=== PATIENT | female | born 1965 | race American Indian/Alaskan Native ===

== ENCOUNTER 2018-03-26 16:16 | Observation (INO) | payer MEDICAID ==
[2018-03-26 16:19] VITALS: BMI 45.7
[2018-03-26] MEDS ORDERED: Sodium Chloride 0.9% 1,000 ML IV STA (17:03)
[2018-03-26 18:08] LABS: BASO # 0.02 K/mm3 (0.0-2.0); BASO % 0.2 % (0.0-3.0); EOS # 0.1 (0.0-0.7); EOS % 0.4 % (1.5-5.0); GRAN # 8.32 (1.4-6.5); GRAN % 66.9 % (50.0-68.0); HEMOGLOBIN 12.1 g/dL (12.0-16.0); LYMPH # 3.1 (1.2-3.4); LYMPH % 25.3 % (22.0-35.0); MEAN CELL VOLUME 85.7 fl (80.0-105.0); MEAN CORPUSCULAR HEMOGLOBIN 28.3 pg (25.0-35.0); MEAN CORPUSCULAR HGB CONC 33.1 g/dl (31.0-37.0); MEAN PLATELET VOLUME 9.8 fl (7.0-11.0); MONO # 0.9 (0.1-0.6); MONO % 7.2 % (1.0-6.0); RBC 4.27 10^6/uL (3.5-6.1); RED CELL DISTRIBUTION WIDTH 17.7 % (11.5-14.5); WHITE BLOOD COUNT 12.4 10^3/uL (4.5-11.0)
[2018-03-26 18:31] LABS: ALT/SGPT 27 U/L (7-56); AST/SGOT 28 U/L (14-36); BLOOD UREA NITROGEN 15 mg/dL (7-21); CALCIUM 8.6 mg/dL (8.4-10.5); GFR NON-AFRICAN AMERICAN > 60
--- NOTE | 2018-03-26 19:11 | ED PDOC ---
Arrival/HPI - General Chief Complaint: ENT Problem Time Seen by Provider: 03/26/18 16:31 Historian: Patient - History of Present Illness Narrative History of Present Illness (Text): 03/26/18 19:04 53yr old female presents today with a 5 day history of worsening left sided neck pain. pt was seen at [facility] twice in the past [address] of the neck which patient states showed a Left sided salivary gland stone. Patient states on her second visit to the hospital she was discharged home with antibiotics but has been unable to take them due to feeling of difficulty swallowing and breathing. Patient states last night symptoms worsened and she feels as though the throat is closing or something is pushing on the throat. Patient states she tried using Lemonheads/lemon but states that it made the symptoms worse. Patient denies fevers or chills. Patient denies shortness of breath but states she has been having some intermittent chest pain. denies chest pain at present time. Denies dizziness or weakness. Denies headache. Denies any trauma or injury. Patient states she's been able to tolerate liquids but has not been able to tolerate solids. Time/Duration: Other (5 days) Symptom Onset: Gradual Symptom Course: Worsening Quality: Tightness Severity Level: Moderate Past Medical History - Provider Review Nursing Documentation Reviewed: Yes - Travel History Have you recently traveled outside [place] w/in the past 3 mons?: No - Infectious Disease Hx of Infectious Diseases: None - Cardiac Hx Hypertension: Yes - Pulmonary Hx Asthma: Yes - Psychiatric Hx Substance Use: No Family/Social History - Physician Review Nursing Documentation Reviewed: Yes Family/Social History: Unknown Family HX Smoking Status: Former Smoker Hx Alcohol Use: No Hx Substance Use: No Allergies/Home Meds Allergies/Adverse Reactions: Allergies No Known Allergies Allergy (Verified 03/26/18 16:28) Review of Systems - Review of Systems Constitutional: absent: Fatigue, Fevers ENT: absent: Sore Throat, Sinus Congestion Respiratory: absent: SOB, Cough Cardiovascular: Chest Pain (intermittent;non currently). absent: Palpitations Gastrointestinal: absent: Abdominal Pain, Nausea, Vomiting Genitourinary Female: absent: Dysuria, Frequency, Hematuria Musculoskeletal: Neck Pain (left sided neck pain/swelling/mass) Skin: absent: Rash, Pruritis Neurological: absent: Headache, Dizziness Psychiatric: Anxiety. absent: Depression, Suicidal Ideation Physical Exam Vital Signs Reviewed: Yes Vital Signs Temp Pulse Resp BP Pulse Ox 03/26/18 16:28 98 F 87 18 147/79 97 Temperature: Afebrile Blood Pressure: Normal Pulse: Regular Respiratory Rate: Normal Appearance: Positive for: Well-Appearing, Non-Toxic, Comfortable Pain Distress: None Mental Status: Positive for: Alert and Oriented X 3 - Systems Exam Head: Present: Atraumatic Pupils: Present: PERRL Extroacular Muscles: Present: EOMI Mouth: Present: Moist Mucous Membranes, Normal Lips, Normal Tounge. No: Drooling, Trismus Pharnyx: Present: Normal. No: ERYTHEMA, TONSILS ENLARGED, Peritonsilar Swelling, Uvular Deviation, Muffled/Hoarse Voice, Strider, Soft Palate/Uvular Edema Nose (External): Present: Atraumatic Nose (Internal): Present: Normal Inspection Neck: Present: Normal Range of Motion, Trachea Midline, Other (+ ttp over left side of the neck. no erythema; no warmth. + tender mass noted. ). No: MIDLINE TENDERNESS Respiratory/Chest: Present: Clear to Auscultation, Good Air Exchange. No: Respiratory Distress, Accessory Muscle Use, Wheezes, Retracting, Rhonchi, Tachypneic Cardiovascular: Present: Regular Rate and Rhythm, Normal S1, S2. No: Murmurs Neurological: Present: GCS=15, Speech Normal Skin: Present: Warm, Dry, Normal Color. No: Rashes Psychiatric: Present: Alert, Oriented x 3 Medical Decision Making ED Course and Treatment: 03/26/18 19:27 53yr old female with left sided neck pain/ hx of neck mass. c/o difficulty swallowing. pt is non toxic well appearing; c/o left sided neck tightness with difficulty swallowing. seen 2 times at another hospital for the same. pt tolerating secretions; resting comfortably. pt given solumedrol 125mg IV. cbc; wbc; 12.4 cmp; wnl ct neck:FINDINGS: PHARYNX: Unremarkable appearance of the nasopharynx, oropharyx, and hypopharynx. No pharyngeal mucosal based mass lesions. LARYNX: The larynx is unremarkable. The epiglottis appears normal. RETROPHARYNGEAL SPACE: No retropharyngeal soft tissue swelling or gas. SALIVARY GLANDS: Unremarkable appearance of the parotid, submandibular, and sublingual glands. LYMPH NODES: No significant lymphadenopathy. THYROID: Unremarkable appearance of the thyroid. No thyroid nodule seen. BONES: No acute osseous abnormality. No aggressive appearing osseous lesion. Mild inflammatory changes suspected within the ethmoid sinuses. IMPRESSION: Unremarkable CT neck without IV contrast. Mild inflammatory changes ethmoid sinuses. Clinical correlation advised. pt reassessment; pt is now c/o chest pain. pt states she has been having intermittent chest pain for the past week. ekg cxr trop added. ekg; normal sinus rhythm at 67 bpm normal axis no ST elevations QTC 467 trop: negative case discussed with dr. Sullivan (ENT) in depth; he advised steriods, abx. asa 300 rectal supp ordered. 03/26/18 19:[address] Mcfarlane; accepts observational status admission; would like patient NPo, given clindamycin IV. all results discussed with patient in depth. all aspects of this case were discussed the attending of record. impression; neck pain, chest pain, hx of salivary gland stone. admit observational status to tele. - Lab Interpretations Lab Results: 03/26/18 17:40 03/26/18 18:12 Lab Results 03/26/18 18:12: Sodium 139, Potassium 3.7, Chloride 106, Carbon Dioxide 27, Anion Gap 10, BUN 15, Creatinine 0.9, Est GFR ( Amer) > 60, Est GFR (Non- Af Amer) > 60, Random Glucose 97, Calcium 8.6, Total Bilirubin 0.5, AST 28, ALT 27, Alkaline Phosphatase 77, Total Protein 7.8, Albumin 4.0, Globulin 3.9, Albumin/Globulin Ratio 1.0 L 03/26/18 17:40: WBC 12.4 H, RBC 4.27, Hgb 12.1, Hct 36.6, MCV 85.7, MCH 28.3, MCHC 33.1, RDW 17.7 H, Plt Count 484 H, MPV 9.8, Gran % 66.9, Lymph % (Auto) 25.3, [place] % (Auto) 7.2 H, Eos % (Auto) 0.4 L, Baso % (Auto) 0.2, Gran # 8.32 H, Lymph # (Auto) 3.1, [place] # (Auto) 0.9 H, Eos # (Auto) 0.1, Baso # (Auto) 0.02 - RAD Interpretation Radiology Orders: 03/26/18 17:21 NECK SOFT TISSUE W/O CONTRAST [CT] Stat - Medication Orders Current Medication Orders: Discontinued Medications Sodium Chloride (Sodium Chloride 0.9%) 1,000 mls @ 999 mls/hr IV .Q1H1M STA Stop: 03/26/18 18:03 Last Admin: 03/26/18 18:12 Dose: 999 mls/hr eMAR Start Stop Document 03/26/18 18:12 SS (Rec: 03/26/18 18:12 SS [id number]) Intravenous Solution Start Date 03/26/18 Start Time 18:12 End Date 03/26/18 End time 19:12 Total Infusion Time 60 Methylprednisolone (Solu-Medrol) 125 mg IVP STAT STA Stop: 03/26/18 18:02 Last Admin: 03/26/18 18:12 Dose: 125 mg IVP Administration Document 03/26/18 18:12 SS (Rec: 03/26/18 18:12 SS [id number]) Charges for Administration # of IVP Administrations 1 Disposition/Present on Arrival - Present on Arrival Any Indicators Present on Arrival: No History of DVT/PE: No History of Uncontrolled Diabetes: No Urinary Catheter: No History of Decub. Ulcer: No History Surgical Site Infection Following: None - Disposition Have Diagnosis and Disposition been Completed?: Yes Diagnosis: Neck pain, Chest pain, Difficulty swallowing, History of salivary gland disease Disposition: HOSPITALIZED Disposition Time: 19:45 Patient Plan: Observation Patient Problems: Current Active Problems Problem Status Onset Chest pain Acute Difficulty swallowing Acute History of salivary gland disease Acute Neck pain Acute Condition: FAIR Discharge Instructions (ExitCare): Chest Pain (ED)
[2018-03-26 19:41] LABS: TROPONIN I < 0.01 ng/mL
[2018-03-26] MEDS ORDERED: Clindamycin 600mg/50ml D5W 600 MG/50 ML VIAL IVPB STA (19:46)
[2018-03-26] MEDS: Sodium Chloride 0.9% 1,000 ML IV SCH (20:16)
[2018-03-26 20:17] LABS: CK-MB 1.2 ng/mL (0.0-3.6)
--- NOTE | 2018-03-26 21:14 | CP.PCM.HP ---
<DaveSkyler - Last Filed: 03/26/18 21:52> History of Present Illness - History of Present Illness History of Present Illness: Skyler Acosta DO PGY1. [facility] Hospitalist Service, Dr Maeve Amin: Left neck swelling 53 y/o female with PMH of HTN, asthma, GERD presents with 4 days h/o left sided neck swelling. It's gradual, progressive causing SOB, dry mouth, difficulty swallowing and inability to eat for the the past 3 days. She reports extension of the neck tightness to the mid chest. She denied fever, chills, facial droop, muscle or sensory deficits. Patient went to the ED in [facility] [facility] twice for the past [address] neck showed salivary gland stone, steroids were given. She was discharged on oral abx but was not able to swallow. Her symptoms did not resolve and decided to come to ED today. Patient denied heat/cold intolerance, N/V/D/C, skin changes, palpitations, prior dry eye/mouth, prior dysphagia, tightness of skin, CP, headache 12 points ROS reviewed with pertinent positives as above PMH: HTN, asthma, GERD, back pain PSH: none Meds: amlodipine, ventolin, pulmicort, flexirel All: NKDA SH: quit smoking 1 year ago (smoked 1/2 ppd for the last 35 years) . Denies drug use. Drinks alcohol socially. Disabled due to her back pain, vertebral disease FH: mother and sister have thyroid disease Present on Admission - Present on Admission Any Indicators Present on Admission: No Past Patient History - Infectious Disease Hx of Infectious Diseases: None - Past Social History Smoking Status: Former Smoker - CARDIAC Hx Hypertension: Yes - PULMONARY Hx Asthma: Yes - PSYCHIATRIC Hx Substance Use: No Meds Allergies/Adverse Reactions: Allergies Allergy/AdvReac Type Severity Reaction Status Date / Time No Known Allergies Allergy Verified 03/26/18 16:28 Physical Exam - Constitutional Appears: Well, Non-toxic, No Acute Distress - Head Exam Head Exam: ATRAUMATIC, NORMAL INSPECTION, NORMOCEPHALIC - Eye Exam Eye Exam: EOMI, Normal appearance, PERRL Pupil Exam: NORMAL ACCOMODATION, PERRL - Expanded ENT Exam Expanded Mouth exam: dry mucosa, normal external inspection, tongue normal. absent: drooling, laceration, muffled voice Teeth exam: dental caries, fractured tooth # Throat exam: absent: Post Pharyngeal Edema, Tonsillar Erythema, Tonsillar Exudate - Neck Exam Neck exam: Positive for: Lymphadenopathy (left side), Tenderness (left side of neck ). Negative for: Thyromegaly - Respiratory Exam Respiratory Exam: Clear to Auscultation Bilateral, NORMAL BREATHING PATTERN. absent: Rales, Rhonchi, Wheezes - Cardiovascular Exam Cardiovascular Exam: REGULAR RHYTHM, +S1, +S2. absent: Gallop, JVD, Rubs - GI/Abdominal Exam GI & Abdominal Exam: Normal Bowel Sounds, Soft. absent: Guarding, Rebound, Tenderness Additional comments: epigastric tenderness - Extremities Exam Extremities exam: Positive for: normal capillary refill, normal inspection, pedal pulses present - Back Exam Back exam: paraspinal tenderness - Neurological Exam Neurological exam: Alert, CN II-XII Intact, Oriented x3, Reflexes Normal - Psychiatric Exam Psychiatric exam: Normal Affect, Normal Mood - Skin Skin Exam: Dry, Intact, Normal Color, Warm Results - Vital Signs Recent Vital Signs: Last Vital Signs Temp 98.8 F 03/26/18 19:47 Pulse 75 03/26/18 19:47 Resp 20 03/26/18 19:47 BP 147/78 03/26/18 19:47 Pulse Ox 96 03/26/18 19:47 - Labs Result Diagrams: 03/26/18 17:40 03/26/18 18:12 Labs: Laboratory Results - last 24 hr 03/26/18 03/26/18 03/26/18 17:40 18:12 18:12 WBC 12.4 H RBC 4.27 Hgb 12.1 Hct 36.6 MCV 85.7 MCH 28.3 MCHC 33.1 RDW 17.7 H Plt Count 484 H MPV 9.8 Gran % 66.9 Lymph % (Auto) 25.3 [place] % (Auto) 7.2 H Eos % (Auto) 0.4 L Baso % (Auto) 0.2 Gran # 8.32 H Lymph # (Auto) 3.1 [place] # (Auto) 0.9 H Eos # (Auto) 0.1 Baso # (Auto) 0.02 Sodium 139 Potassium 3.7 Chloride 106 Carbon Dioxide 27 Anion Gap 10 BUN 15 Creatinine 0.9 Est GFR ( Amer) > 60 Est GFR (Non-Af Amer) > 60 Random Glucose 97 Calcium 8.6 Total Bilirubin 0.5 AST 28 ALT 27 Alkaline Phosphatase 77 Lactate Dehydrogenase Total Creatine Kinase CK-MB (CK-2) CK-MB (CK-2) % Troponin I Total Protein 7.8 Albumin 4.0 Globulin 3.9 Albumin/Globulin Ratio 1.0 L TSH 3rd Generation 2.75 03/26/18 18:15 WBC RBC Hgb Hct MCV MCH MCHC RDW Plt Count MPV Gran % Lymph % (Auto) [place] % (Auto) Eos % (Auto) Baso % (Auto) Gran # Lymph # (Auto) [place] # (Auto) Eos # (Auto) Baso # (Auto) Sodium Potassium Chloride Carbon Dioxide Anion Gap BUN Creatinine Est GFR ( Amer) Est GFR (Non-Af Amer) Random Glucose Calcium Total Bilirubin AST ALT Alkaline Phosphatase Lactate Dehydrogenase 506 Total Creatine Kinase 378 H CK-MB (CK-2) 1.2 CK-MB (CK-2) % Cancelled Troponin I < 0.01 Total Protein Albumin Globulin Albumin/Globulin Ratio TSH 3rd Generation Assessment & Plan - Assessment and Plan (Free Text) Assessment: 53 y/o female with PMH of HTN, asthma, GERD presents with 4 days h/o left sided neck swelling. CT neck shows left sialolithiasis. She was also found to have anemia Plan: Left sided neck swelling: -associated with dry mouth and dysphagia. failed steroid treatment. third ER vi sit in 4 days -CT neck done at [facility] [place]: left submandibular salidolithiasis -CT neck (03/26) w/o contrast: read pending -continue solu-medrol 20mg q8h -continue clindamycin 600mg q8h -continue IVF NS@75cc/hr -toradol prn for pain -TSH normal -f/u DEANNA -ENT consulted Dr Nate Jetti: -Likely due to iron deficiency anemia -elevated RDW, throbocytosis, low iron, low normal TIBC, low saturation, ferritin pending -patient asymptomatic -H/H 12.1/36.6 continue monitoring Chest/epigastric pain: -EKG: NSR. no ST/T wave changes -Trop negative x1. serial x2 q6h HTN: -continue home med amlodipine -f/u lipid panel, Hgb A1C Asthma: -moderate, persistent. no active disease -continue home med ventolin, pulmicort -duoneb prn -O2 supp prn -maintain O2 sat >90% Back pain: -continue home med cyclobezaprine DVT/GI ppx: -pantoprazole -SCD NPO Case reviewed and paln discussed with attending Dr Maeve Acosta, DO, PGY1 <Carli Mcfarlane - Last Filed: 03/27/18 06:48> Results - Vital Signs Recent Vital Signs: Last Vital Signs Temp 98.0 F 03/27/18 06:00 Pulse 68 03/27/18 06:00 Resp 18 03/27/18 06:00 BP 150/86 03/27/18 06:00 Pulse Ox 96 03/27/18 06:00 - Labs Result Diagrams: 03/26/18 17:40 03/26/18 18:12 Labs: Laboratory Results - last 24 hr 03/26/18 03/26/18 03/26/18 17:40 18:00 18:12 WBC 12.4 H RBC 4.27 Hgb 12.1 Hct 36.6 MCV 85.7 MCH 28.3 MCHC 33.1 RDW 17.7 H Plt Count 484 H MPV 9.8 Gran % 66.9 Lymph % (Auto) 25.3 [place] % (Auto) 7.2 H Eos % (Auto) 0.4 L Baso % (Auto) 0.2 Gran # 8.32 H Lymph # (Auto) 3.1 [place] # (Auto) 0.9 H Eos # (Auto) 0.1 Baso # (Auto) 0.02 Sodium 139 Potassium 3.7 Chloride 106 Carbon Dioxide 27 Anion Gap 10 BUN 15 Creatinine 0.9 Est GFR ( Amer) > 60 Est GFR (Non-Af Amer) > 60 Random Glucose 97 Calcium 8.6 Iron 32 L TIBC 271 % Saturation 12 L Total Bilirubin 0.5 AST 28 ALT 27 Alkaline Phosphatase 77 Lactate Dehydrogenase Total Creatine Kinase CK-MB (CK-2) CK-MB (CK-2) % Troponin I Total Protein 7.8 Albumin 4.0 Globulin 3.9 Albumin/Globulin Ratio 1.0 L TSH 3rd Generation Urine Color Urine Appearance Urine pH Ur Specific [place] Urine Protein Urine Glucose (UA) Urine Ketones Urine Blood Urine Nitrate Urine Bilirubin Urine Urobilinogen Ur Leukocyte Esterase Urine RBC Urine WBC Ur Epithelial Cells Urine Opiates Screen Urine Methadone Screen Ur Barbiturates Screen Ur Phencyclidine Scrn Ur Amphetamines Screen U Benzodiazepines Scrn U Oth Cocaine Metabols U Cannabinoids Screen 03/26/18 03/26/18 03/26/18 18:12 18:15 21:20 WBC RBC Hgb Hct MCV MCH MCHC RDW Plt Count MPV Gran % Lymph % (Auto) [place] % (Auto) Eos % (Auto) Baso % (Auto) Gran # Lymph # (Auto) [place] # (Auto) Eos # (Auto) Baso # (Auto) Sodium Potassium Chloride Carbon Dioxide Anion Gap BUN Creatinine Est GFR ( Amer) Est GFR (Non-Af Amer) Random Glucose Calcium Iron TIBC % Saturation Total Bilirubin AST ALT Alkaline Phosphatase Lactate Dehydrogenase 506 Total Creatine Kinase 378 H CK-MB (CK-2) 1.2 CK-MB (CK-2) % Cancelled Troponin I < 0.01 Total Protein Albumin Globulin Albumin/Globulin Ratio TSH 3rd Generation 2.75 Urine Color Light yellow Urine Appearance Clear Urine pH 7.0 Ur Specific [place] 1.015 Urine Protein Negative Urine Glucose (UA) Negative Urine Ketones Negative Urine Blood Trace-intact H Urine Nitrate Negative Urine Bilirubin Negative Urine Urobilinogen 0.2 Ur Leukocyte Esterase Negative Urine RBC 0 - 2 Urine WBC Negative Ur Epithelial Cells 1 - 3 Urine Opiates Screen Urine Methadone Screen Ur Barbiturates Screen Ur Phencyclidine Scrn Ur Amphetamines Screen U Benzodiazepines Scrn U Oth Cocaine Metabols U Cannabinoids Screen 03/27/18 03/27/18 00:30 02:18 WBC RBC Hgb Hct MCV MCH MCHC RDW Plt Count MPV Gran % Lymph % (Auto) [place] % (Auto) Eos % (Auto) Baso % (Auto) Gran # Lymph # (Auto) [place] # (Auto) Eos # (Auto) Baso # (Auto) Sodium Potassium Chloride Carbon Dioxide Anion Gap BUN Creatinine Est GFR ( Amer) Est GFR (Non-Af Amer) Random Glucose Calcium Iron TIBC % Saturation Total Bilirubin AST ALT Alkaline Phosphatase Lactate Dehydrogenase Total Creatine Kinase CK-MB (CK-2) CK-MB (CK-2) % Troponin I < 0.01 Total Protein Albumin Globulin Albumin/Globulin Ratio TSH 3rd Generation Urine Color Urine Appearance Urine pH Ur Specific [place] Urine Protein Urine Glucose (UA) Urine Ketones Urine Blood Urine Nitrate Urine Bilirubin Urine Urobilinogen Ur Leukocyte Esterase Urine RBC Urine WBC Ur Epithelial Cells Urine Opiates Screen Negative Urine Methadone Screen Negative Ur Barbiturates Screen Negative Ur Phencyclidine Scrn Negative Ur Amphetamines Screen Negative U Benzodiazepines Scrn Negative U Oth Cocaine Metabols Negative U Cannabinoids Screen Negative Attending/Attestation - Attestation I have personally seen and examined this patient.: Yes I have fully participated in the care of the patient.: Yes I have reviewed all pertinent clinical information: Yes
[2018-03-26] MEDS ORDERED: Ipratropium 0.02% Inhal Soln (0.5 mg/2.5 ml) UD IH STA (21:17)
[2018-03-26 21:21] LABS: IRON 32 ug/dL (45-180)
[2018-03-26 21:30] LABS: % IRON SATURATION 12 % (20-55); TOTAL IRON BINDING CAPACITY 271 ug/dL (265-497)
[2018-03-26 21:33] LABS: URINE BILIRUBIN NEGATIVE (NEGATIVE); URINE BLOOD TRACE-INTACT (NEGATIVE); URINE GLUCOSE (UA) NEGATIVE (NEGATIVE); URINE LEUKOCYTE ESTERASE NEGATIVE Leu/uL (NEGATIVE); URINE PROTEIN NEGATIVE mg/dL (<30 mg/dL); URINE UROBILINOGEN 0.2 E.U./dL (<1 E.U./dL)
[2018-03-26 21:35] LABS: URINE APPEARANCE CLEAR (CLEAR); URINE COLOR LIGHT YELLOW (YELLOW)
[2018-03-26 21:39] LABS: URINE RBC 0 - 2 /hpf (0-2); URINE WBC NEGATIVE /hpf (0-6)
[2018-03-26] MEDS: Albuterol-Ipratrop 3 mg / 0.5 (3 ml) UD IH SCH ×3 (22:04→22:21)
[2018-03-27] MEDS ORDERED: Pneumococcal 23-Valent Vaccine IM ONE (00:51)
[2018-03-27 03:31] LABS: BARBITURATES, UR NEGATIVE (NEGATIVE); BENZODIAZEPINES, UR NEGATIVE (NEGATIVE); OPIATES, UR NEGATIVE (NEGATIVE); PHENCYCLIDINE, UR NEGATIVE (NEGATIVE)
[2018-03-27] MEDS: MethylPREDNISolone 40 mg Vial IVP SCH ×3 (05:28→21:11)
[2018-03-27] MEDS: Clindamycin 600mg/50ml D5W 600 MG/50 ML VIAL IVPB SCH ×3 (05:29→21:12)
[2018-03-27 07:36] LABS: HEMOGLOBIN 11.2 g/dL (12.0-16.0); MEAN CELL VOLUME 86.1 fl (80.0-105.0); MEAN CORPUSCULAR HEMOGLOBIN 27.8 pg (25.0-35.0); MEAN CORPUSCULAR HGB CONC 32.3 g/dl (31.0-37.0); MEAN PLATELET VOLUME 9.3 fl (7.0-11.0); RBC 4.03 10^6/uL (3.5-6.1); RED CELL DISTRIBUTION WIDTH 17.1 % (11.5-14.5); WHITE BLOOD COUNT 8.2 10^3/uL (4.5-11.0)
[2018-03-27 07:50] LABS: ALT/SGPT 27 U/L (7-56); AST/SGOT 32 U/L (14-36); BLOOD UREA NITROGEN 12 mg/dL (7-21); CALCIUM 8.9 mg/dL (8.4-10.5); GFR NON-AFRICAN AMERICAN > 60; HDL CHOLESTEROL 53 mg/dL (29-60)
[2018-03-27 08:00] LABS: LDL CHOLESTEROL 133 mg/dL (0-129)
[2018-03-27] MEDS: Arformoterol 15 mcg/2 ml Inh Sol IH SCH ×2 (08:15→20:17)
[2018-03-27] MEDS: Budesonide 0.25 mg/2 ml Inhal Susp UD IH SCH ×2 (08:15→20:17)
--- NOTE | 2018-03-27 08:52 | RAD ---
Date of service: 03/26/2018 HISTORY: chest pain COMPARISON: No prior. FINDINGS: LUNGS: No active pulmonary disease. PLEURA: No significant pleural effusion identified, no pneumothorax apparent. CARDIOVASCULAR: No aortic atherosclerotic calcification present. Normal cardiac size. No pulmonary vascular congestion. OSSEOUS STRUCTURES: No significant abnormalities. VISUALIZED UPPER ABDOMEN: Normal. OTHER FINDINGS: None. IMPRESSION: No active disease.
[2018-03-27 08:58] LABS: INR 1.09; PARTIAL THROMBOPLASTIN TIME 29.4 Seconds (25.1-36.5); PROTHROMBIN TIME 12.6 SECONDS (9.4-12.5)
--- NOTE | 2018-03-27 09:27 | CT ---
Date of service: 03/26/2018 PROCEDURE: CT NECK WITHOUT CONTRAST HISTORY: left sided throat pain/neck pain/ swelling. COMPARISON: None available. TECHNIQUE: CT of the neck without intravenous contrast. Coronal and sagittal reformats generated. Radiation dose: Total exam DLP = 885.92 mGy-cm. This CT exam was performed using one or more of the following dose reduction techniques: Automated exposure control, adjustment of the mA and/or kV according to patient size, and/or use of iterative reconstruction technique. FINDINGS: NASOPHARYNX: Unremarkable. SUPRAHYOID NECK: Unremarkable oropharynx, oral cavity, parapharyngeal space and retropharyngeal space. INFRAHYOID NECK: Unremarkable larynx, hypopharynx, and supraglottic space. Vocal cords intact. MASS: None. GLANDS: Parotid and submandibular glands unremarkable. Normal size thyroid gland, without nodule. LYMPH NODES: Normal. No lymphadenopathy. CERVICAL SPINE: No fracture or focal lesion. OTHER FINDINGS: 7 millimeter calculus in the left submandibular gland near the origin of Whartin's duct. IMPRESSION: 7 millimeter calculus in the left submandibular gland near the origin of Whartin's duct.
--- NOTE | 2018-03-27 09:33 | CARD ---
APPROVED REPORT Date of service: 03/26/2018 EKG Measurement Heart [id number] <Conclusion> Normal sinus rhythm PRWP Nonspecific T wave abnormality Prolonged QT
--- NOTE | 2018-03-27 14:37 | CP.PCM.PN ---
<Jocelyn Bustamante - Last Filed: 03/27/18 16:02> Subjective - Date & Time of Evaluation Date of Evaluation: 03/27/18 Time of Evaluation: 10:12 - Subjective Subjective: Jocelyn Bustamante PGY1 Hospital Progress Note Patient seen and examined at bedside this morning. No acute events overnight. Continues to admit to left sided neck swelling and difficulty swallowing. Offers no new complaints. Objective - Vital Signs/Intake and Output Vital Signs (last 24 hours): Temp Pulse Resp BP Pulse Ox 98.1 F 102 H 18 135/76 96 03/27/18 12:00 03/27/18 12:00 03/27/18 06:00 03/27/18 12:00 03/27/18 06:00 Intake and Output: 03/27/18 03/27/18 06:59 18:59 Output Total 600 Balance -600 - Medications Medications: Current Medications Amlodipine Besylate (Norvasc) 5 mg PO DAILY [facility] Last Admin: 03/27/18 09:35 Dose: 5 mg Arformoterol Tartrate (Brovana) 15 mcg IH [id number] [facility] Last Admin: 03/27/18 08:15 Dose: 15 mcg Budesonide (Pulmicort Respules) 0.25 mg IH [id number] [facility] Last Admin: 03/27/18 08:15 Dose: 0.25 mg Cyclobenzaprine HCl (Flexeril) 5 mg PO TID [facility] Last Admin: 03/27/18 09:35 Dose: 5 mg Clindamycin Phosphate (Cleocin) 600 mg in 50 mls @ 50 mls/hr IVPB Q8 [facility]; Protocol Last Admin: 03/27/18 05:29 Dose: 50 mls/hr Sodium Chloride (Sodium Chloride 0.9%) 1,000 mls @ 75 mls/hr IV .[id number] [facility] Last Admin: 03/26/18 20:16 Dose: 75 mls/hr Ketorolac Tromethamine (Toradol) 15 mg IVP Q6 PRN PRN Reason: pain chest or neck Last Admin: 03/27/18 08:42 Dose: 15 mg Methylprednisolone (Solu-Medrol) 20 mg IVP Q8 [facility] Last Admin: 03/27/18 05:28 Dose: 20 mg Pantoprazole Sodium (Protonix Inj) 40 mg IVP DAILY [facility] Last Admin: 03/27/18 09:36 Dose: 40 mg - Labs Labs: 03/27/18 07:10 03/27/18 07:10 PT 12.6 SECONDS (9.4-12.5) H 03/27/18 08:30 INR 1.09 03/27/18 08:30 APTT 29.4 Seconds (25.1-36.5) 03/27/18 08:30 - Additional Findings Additional findings: - Constitutional Appears: Well, Non-toxic, No Acute Distress - Head Exam Head Exam: ATRAUMATIC, NORMAL INSPECTION, NORMOCEPHALIC - Eye Exam Eye Exam: EOMI, Normal appearance, PERRL Pupil Exam: NORMAL ACCOMODATION, PERRL - Expanded ENT Exam Expanded Mouth exam: dry mucosa, normal external inspection, tongue normal. absent: drooling, muffled voice Throat exam: absent: Post Pharyngeal Edema, Tonsillar Erythema, Tonsillar Exudate - Neck Exam Neck exam: Positive for: Tenderness (left side of neck ). Negative for: Thyromegaly - Respiratory Exam Respiratory Exam: Clear to Auscultation Bilateral, NORMAL BREATHING PATTERN. absent: Rales, Rhonchi, Wheezes - Cardiovascular Exam Cardiovascular Exam: REGULAR RHYTHM, +S1, +S2. absent: Gallop, JVD, Rubs - GI/Abdominal Exam GI & Abdominal Exam: Normal Bowel Sounds, Soft. absent: Guarding, Rebound, Tenderness Additional comments: - Extremities Exam Extremities exam: Positive for: normal capillary refill, normal inspection, pedal pulses present - Back Exam Back exam: normal examination - Neurological Exam Neurological exam: Alert, CN II-XII Intact, Oriented x3, Reflexes Normal - Skin Skin Exam: Dry, Intact, Normal Color, Warm Assessment and Plan - Assessment and Plan (Free Text) Assessment: 53 y/o female with PMH of HTN, asthma, GERD presents with 4 days h/o left sided neck swelling. CT neck shows left sialolithiasis. Plan: Left submandibular salidolithiasis -failed outpatient treatment -CT neck shows 7mm in the left submandibular gland near the origin of Whartin's duct -CXR shows no active disease -continue solu-medrol 20mg q8h -continue clindamycin 600mg q8h -toradol prn for pain -TSH normal -f/u DEANNA, SS-A/B -ENT consulted Leukocytosis -afebrile, no WBC, -blood, urine culture pending Anemia -Likely due to iron deficiency anemia -likely iron deficiency -patient asymptomatic Chest pain -EKG: NSR. no ST/T wave changes -Trop -x3 HTN -continue home med amlodipine Asthma -moderate, persistent -continue home med ventolin, pulmicort -continue duoneb prn -continue O2 supp prn Back pain -continue home med cyclobezaprine PPX/Diet -pantoprazole, SCD -liquid diet Patient seen and case discussed with attending, Dr. Gaspar <Dai Gaspar - Last Filed: 03/27/18 16:22> Objective - Vital Signs/Intake and Output Vital Signs (last 24 hours): Temp Pulse Resp BP Pulse Ox 98.1 F 102 H 18 135/76 96 03/27/18 12:00 03/27/18 12:00 03/27/18 06:00 03/27/18 12:00 03/27/18 06:00 Intake and Output: 03/27/18 03/27/18 06:59 18:59 Output Total 600 Balance -600 - Medications Medications: Current Medications Amlodipine Besylate (Norvasc) 5 mg PO DAILY [facility] Last Admin: 03/27/18 09:35 Dose: 5 mg Arformoterol Tartrate (Brovana) 15 mcg IH [id number] [facility] Last Admin: 03/27/18 08:15 Dose: 15 mcg Budesonide (Pulmicort Respules) 0.25 mg IH [id number] [facility] Last Admin: 03/27/18 08:15 Dose: 0.25 mg Cyclobenzaprine HCl (Flexeril) 5 mg PO TID [facility] Last Admin: 03/27/18 15:13 Dose: 5 mg Clindamycin Phosphate (Cleocin) 600 mg in 50 mls @ 50 mls/hr IVPB Q8 [facility]; Protocol Last Admin: 03/27/18 15:10 Dose: 50 mls/hr Sodium Chloride (Sodium Chloride 0.9%) 1,000 mls @ 75 mls/hr IV .[id number] [facility] Last Admin: 03/27/18 15:05 Dose: 75 mls/hr Ketorolac Tromethamine (Toradol) 15 mg IVP Q6 PRN PRN Reason: pain chest or neck Last Admin: 03/27/18 08:42 Dose: 15 mg Methylprednisolone (Solu-Medrol) 20 mg IVP Q8 [facility] Last Admin: 03/27/18 15:05 Dose: 20 mg Pantoprazole Sodium (Protonix Inj) 40 mg IVP DAILY [facility] Last Admin: 03/27/18 09:36 Dose: 40 mg - Labs Labs: 03/27/18 07:10 03/27/18 07:10 PT 12.6 SECONDS (9.4-12.5) H 03/27/18 08:30 INR 1.09 03/27/18 08:30 APTT 29.4 Seconds (25.1-36.5) 03/27/18 08:30 Attending/Attestation - Attestation I have personally seen and examined this patient.: Yes I have fully participated in the care of the patient.: Yes I have reviewed all pertinent clinical information, including history, physical exam and plan: Yes Notes (Text): 03/27/18 16:18 53 year old female with past medical history of hypertension, GERD and asthma who presented with complaint of left sided neck swelling. She was recently prescribed po antibiotics and steroids for sialolithiasis. CT neck confirms 7 mm calculus in the left submandibular gland near the origin of Whartin's duct. She is on iv steroids and iv antibiotics. Speech/swallow evaluation was appreciated. She is pending ENT evaluation. Dai Gaspar MD Hospitalist.
[2018-03-27] MEDS: Sodium Chloride 0.9% 1,000 ML IV SCH ×2 (15:05→22:17)
[2018-03-28 05:53] VITALS: O2SAT 95
[2018-03-28] MEDS: MethylPREDNISolone 40 mg Vial IVP SCH ×2 (06:13→13:08)
[2018-03-28] MEDS: Clindamycin 600mg/50ml D5W 600 MG/50 ML VIAL IVPB SCH ×2 (06:14→13:08)
[2018-03-28] MEDS: Sodium Chloride 0.9% 1,000 ML IV SCH ×2 (06:15→12:57)
[2018-03-28 07:25] LABS: HEMOGLOBIN 10.7 g/dL (12.0-16.0); MEAN CELL VOLUME 86.6 fl (80.0-105.0); MEAN CORPUSCULAR HEMOGLOBIN 28.2 pg (25.0-35.0); MEAN CORPUSCULAR HGB CONC 32.5 g/dl (31.0-37.0); MEAN PLATELET VOLUME 9.4 fl (7.0-11.0); RBC 3.8 10^6/uL (3.5-6.1); RED CELL DISTRIBUTION WIDTH 17.3 % (11.5-14.5); WHITE BLOOD COUNT 11.2 10^3/uL (4.5-11.0)
[2018-03-28 07:30] LABS: ALBUMIN 3.8 g/dL (3.0-4.8); ALT/SGPT 30 U/L (7-56); AST/SGOT 32 U/L (14-36); BLOOD UREA NITROGEN 15 mg/dL (7-21); CALCIUM 8.7 mg/dL (8.4-10.5); GFR NON-AFRICAN AMERICAN > 60
[2018-03-28] MEDS: Budesonide 0.25 mg/2 ml Inhal Susp UD IH SCH (07:58)
[2018-03-28] MEDS: Arformoterol 15 mcg/2 ml Inh Sol IH SCH (07:58)
--- NOTE | 2018-03-28 10:55 | CP.PCM.DIS ---
<Jocelyn Bustamante - Last Filed: 03/28/18 10:49> Provider - Provider Date of Admission: 03/26/18 19:47 Attending physician: Dai Gaspar MD Consults: 03/26/18 19:45 Otolaryngology Consult Stat Consulting Provider: Walter Sullivan Consulting Physician: Walter Sullivan Reason for Consult: neck pain, difficulty swallowing 03/27/18 00:51 Transition In Care/Readmission Reduction Routine Comment: Physician Instructions: Reason For Exam: PROTOCOL Time Spent in preparation of Discharge (in minutes): 35 Hospital Course - Lab Results Lab Results: Micro Results 03/26/18 21:20 Urine,Clean Catch Urine Culture - Final No Growth (<1,000 CFU/ML) 03/26/18 17:40 Blood Blood Culture - Preliminary NO GROWTH AFTER 24 HOURS 03/26/18 17:20 Blood Blood Culture - Preliminary NO GROWTH AFTER 24 HOURS Most Recent Lab Values WBC 11.2 10^3/uL (4.5-11.0) H D 03/28/18 06:30 RBC 3.80 10^6/uL (3.5-6.1) 03/28/18 06:30 Hgb 10.7 g/dL (12.0-16.0) L 03/28/18 06:30 Hct 32.9 % (36.0-48.0) L 03/28/18 06:30 MCV 86.6 fl (80.0-105.0) 03/28/18 06:30 MCH 28.2 pg (25.0-35.0) 03/28/18 06:30 MCHC 32.5 g/dl (31.0-37.0) 03/28/18 06:30 RDW 17.3 % (11.5-14.5) H 03/28/18 06:30 Plt Count 428 10^3/uL (120.0-450.0) 03/28/18 06:30 MPV 9.4 fl (7.0-11.0) 03/28/18 06:30 Gran % 66.9 % (50.0-68.0) 03/26/18 17:40 Lymph % (Auto) 25.3 % (22.0-35.0) 03/26/18 17:40 [place] % (Auto) 7.2 % (1.0-6.0) H 03/26/18 17:40 Eos % (Auto) 0.4 % (1.5-5.0) L 03/26/18 17:40 Baso % (Auto) 0.2 % (0.0-3.0) 03/26/18 17:40 Gran # 8.32 (1.4-6.5) H 03/26/18 17:40 Lymph # (Auto) 3.1 (1.2-3.4) 03/26/18 17:40 [place] # (Auto) 0.9 (0.1-0.6) H 03/26/18 17:40 Eos # (Auto) 0.1 (0.0-0.7) 03/26/18 17:40 Baso # (Auto) 0.02 K/mm3 (0.0-2.0) 03/26/18 17:40 PT 12.6 SECONDS (9.4-12.5) H 03/27/18 08:30 INR 1.09 03/27/18 08:30 APTT 29.4 Seconds (25.1-36.5) 03/27/18 08:30 Sodium 137 mmol/L (132-148) 03/28/18 06:30 Potassium 4.4 mmol/L (3.6-5.0) 03/28/18 06:30 Chloride 105 mmol/L (98-107) 03/28/18 06:30 Carbon Dioxide 25 mmol/L (21-33) 03/28/18 06:30 Anion Gap 11 (10-20) 03/28/18 06:30 BUN 15 mg/dL (7-21) 03/28/18 06:30 Creatinine 0.9 mg/dl (0.7-1.2) 03/28/18 06:30 Est GFR ( Amer) > 60 03/28/18 06:30 Est GFR (Non-Af Amer) > 60 03/28/18 06:30 Random Glucose 152 mg/dL (70-110) H 03/28/18 06:30 Hemoglobin A1c 6.1 % (4.2-6.5) 03/26/18 18:00 Calcium 8.7 mg/dL (8.4-10.5) 03/28/18 06:30 Iron 32 ug/dL (45-180) L 03/26/18 18:00 TIBC 271 ug/dL (265-497) 03/26/18 18:00 % Saturation 12 % (20-55) L 03/26/18 18:00 Ferritin 33.5 ng/mL 03/26/18 18:00 Total Bilirubin 0.5 mg/dL (0.2-1.3) 03/28/18 06:30 AST 32 U/L (14-36) 03/28/18 06:30 ALT 30 U/L (7-56) 03/28/18 06:30 Alkaline Phosphatase 64 U/L (38-126) 03/28/18 06:30 Lactate Dehydrogenase 506 U/L (333-699) 03/26/18 18:15 Total Creatine Kinase 378 U/L (35-230) H 03/26/18 18:15 CK-MB (CK-2) 1.2 ng/mL (0.0-3.6) 03/26/18 18:15 CK-MB (CK-2) % Cancelled 03/26/18 18:15 Troponin I < 0.01 ng/mL 03/27/18 07:10 Total Protein 7.5 g/dL (5.8-8.3) 03/28/18 06:30 Albumin 3.8 g/dL (3.0-4.8) 03/28/18 06:30 Globulin 3.7 gm/dL 03/28/18 06:30 Albumin/Globulin Ratio 1.0 (1.1-1.8) L 03/28/18 06:30 Triglycerides 79 mg/dL (35-160) 03/27/18 07:10 Cholesterol 230 mg/dL (130-200) H 03/27/18 07:10 LDL Cholesterol Direct 133 mg/dL (0-129) H 03/27/18 07:10 HDL Cholesterol 53 mg/dL (29-60) 03/27/18 07:10 Procalcitonin < 0.05 NG/ML (0.19-0.49) L 03/26/18 18:00 TSH 3rd Generation 2.75 mIU/mL (0.46-4.68) 03/26/18 18:12 Urine Color Light yellow (YELLOW) 03/26/18 21:20 Urine Appearance Clear (CLEAR) 03/26/18 21:20 Urine pH 7.0 (4.7-8.0) 03/26/18 21:20 Ur Specific [place] 1.015 (1.005-1.035) 03/26/18 21:20 Urine Protein Negative mg/dL (<30 mg/dL) 03/26/18 21:20 Urine Glucose (UA) Negative mg/dL (NEGATIVE) 03/26/18 21:20 Urine Ketones Negative mg/dL (NEGATIVE) 03/26/18 21:20 Urine Blood Trace-intact (NEGATIVE) H 03/26/18 21:20 Urine Nitrate Negative (NEGATIVE) 03/26/18 21:20 Urine Bilirubin Negative (NEGATIVE) 03/26/18 21:20 Urine Urobilinogen 0.2 E.U./dL (<1 E.U./dL) 03/26/18 21:20 Ur Leukocyte Esterase Negative Rigoberto/uL (NEGATIVE) 03/26/18 21:20 Urine RBC 0 - 2 /hpf (0-2) 03/26/18 21:20 Urine WBC Negative /hpf (0-6) 03/26/18 21:20 Ur Epithelial Cells 1 - 3 /hpf (0-5) 03/26/18 21:20 Urine Opiates Screen Negative (NEGATIVE) 03/27/18 02:18 Urine Methadone Screen Negative (NEGATIVE) 03/27/18 02:18 Ur Barbiturates Screen Negative (NEGATIVE) 03/27/18 02:18 Ur Phencyclidine Scrn Negative (NEGATIVE) 03/27/18 02:18 Ur Amphetamines Screen Negative (NEGATIVE) 03/27/18 02:18 U Benzodiazepines Scrn Negative (NEGATIVE) 03/27/18 02:18 U Oth Cocaine Metabols Negative (NEGATIVE) 03/27/18 02:18 U Cannabinoids Screen Negative (NEGATIVE) 03/27/18 02:18 - Hospital Course Hospital Course: Upon admission, this is a 53 y/o female with PMH of HTN, asthma, GERD presented with 4 days h/o left sided neck swelling. It was described as gradual, progressive causing SOB, dry mouth, difficulty swallowing and inability to eat for the the past 3 days. She reported extension of the neck tightness to the mid chest. She denied fever, chills, facial droop, muscle or sensory deficits. Patient went to the ED in [facility] twice for the past [address] neck showed salivary gland stone, steroids were given. She was discharged on oral abx but was not able to swallow. Her symptoms did not resolve and decided to come to ED today. During hospital course, she was started on clindamycin, solumedrol 20mg q8, toradol for pain and trops x3 were negative. Soft tissue neck CT showed 7mm calculus in the left submandibular gland near the origin of Whartin's duct. CXR showed no active disease. There was a mild leukocytosis likely from steroid use as patient was afebrile. TSH was WNL. ENT evaluated patient and recommended medical management and follow up in office as outpatient. Patient agreed with discharge and agreed to follow up outpatient in ENT office. Referral given to patient. Discharge Exam - Additional Findings Additional findings: - Constitutional Appears: Well, Non-toxic, No Acute Distress - Head Exam Head Exam: ATRAUMATIC, NORMAL INSPECTION, NORMOCEPHALIC - Eye Exam Eye Exam: EOMI, Normal appearance, PERRL Pupil Exam: NORMAL ACCOMODATION, PERRL - Expanded ENT Exam Expanded Mouth exam: dry mucosa, normal external inspection, tongue normal. absent: drooling, muffled voice, stridor Throat exam: absent: Post Pharyngeal Edema, Tonsillar Erythema - Neck Exam Neck exam: Positive for: Tenderness (left side of neck ). Negative for: Thyromegaly - Respiratory Exam Respiratory Exam: Clear to Auscultation Bilateral, NORMAL BREATHING PATTERN. absent: Rales, Rhonchi, Wheezes - Cardiovascular Exam Cardiovascular Exam: REGULAR RHYTHM, +S1, +S2. absent: Gallop, JVD, Rubs - GI/Abdominal Exam GI & Abdominal Exam: Normal Bowel Sounds, Soft. absent: Guarding, Rebound, Tenderness Additional comments: - Extremities Exam Extremities exam: Positive for: normal capillary refill, normal inspection, pedal pulses present - Back Exam Back exam: normal examination - Neurological Exam Neurological exam: Alert, CN II-XII Intact, Oriented x3, Reflexes Normal - Skin Skin Exam: Dry, Intact, Normal Color, Warm Discharge Plan - Follow Up Plan Condition: FAIR Disposition: HOME/ ROUTINE Additional Instructions: Please follow up with your primary care doctor within 5-7 days of discharge. Please follow up with your ENT (ear, nose and thorat) speacialist within 3-5 days of discharge. A referral has been provided to you. No changes have been to your medications, please continue as previously started by your primary care doctor. Please return to the ED for any new or worsening symptoms. Referrals: Walter Sullivan DO [Staff Provider] - <Dai Gaspar - Last Filed: 03/28/18 12:00> Provider - Provider Date of Admission: 03/26/18 19:47 Attending physician: Dai Gaspar MD Consults: 03/26/18 19:45 Otolaryngology Consult Stat Consulting Provider: Walter Sullivan Consulting Physician: Walter Sullivan Reason for Consult: neck pain, difficulty swallowing 03/27/18 00:51 Transition In Care/Readmission Reduction Routine Comment: Physician Instructions: Reason For Exam: PROTOCOL Hospital Course - Lab Results Lab Results: Micro Results 03/26/18 21:20 Urine,Clean Catch Urine Culture - Final No Growth (<1,000 CFU/ML) 03/26/18 17:40 Blood Blood Culture - Preliminary NO GROWTH AFTER 24 HOURS 03/26/18 17:20 Blood Blood Culture - Preliminary NO GROWTH AFTER 24 HOURS Most Recent Lab Values WBC 11.2 10^3/uL (4.5-11.0) H D 03/28/18 06:30 RBC 3.80 10^6/uL (3.5-6.1) 03/28/18 06:30 Hgb 10.7 g/dL (12.0-16.0) L 03/28/18 06:30 Hct 32.9 % (36.0-48.0) L 03/28/18 06:30 MCV 86.6 fl (80.0-105.0) 03/28/18 06:30 MCH 28.2 pg (25.0-35.0) 03/28/18 06:30 MCHC 32.5 g/dl (31.0-37.0) 03/28/18 06:30 RDW 17.3 % (11.5-14.5) H 03/28/18 06:30 Plt Count 428 10^3/uL (120.0-450.0) 03/28/18 06:30 MPV 9.4 fl (7.0-11.0) 03/28/18 06:30 Gran % 66.9 % (50.0-68.0) 03/26/18 17:40 Lymph % (Auto) 25.3 % (22.0-35.0) 03/26/18 17:40 [place] % (Auto) 7.2 % (1.0-6.0) H 03/26/18 17:40 Eos % (Auto) 0.4 % (1.5-5.0) L 03/26/18 17:40 Baso % (Auto) 0.2 % (0.0-3.0) 03/26/18 17:40 Gran # 8.32 (1.4-6.5) H 03/26/18 17:40 Lymph # (Auto) 3.1 (1.2-3.4) 03/26/18 17:40 [place] # (Auto) 0.9 (0.1-0.6) H 03/26/18 17:40 Eos # (Auto) 0.1 (0.0-0.7) 03/26/18 17:40 Baso # (Auto) 0.02 K/mm3 (0.0-2.0) 03/26/18 17:40 PT 12.6 SECONDS (9.4-12.5) H 03/27/18 08:30 INR 1.09 03/27/18 08:30 APTT 29.4 Seconds (25.1-36.5) 03/27/18 08:30 Sodium 137 mmol/L (132-148) 03/28/18 06:30 Potassium 4.4 mmol/L (3.6-5.0) 03/28/18 06:30 Chloride 105 mmol/L (98-107) 03/28/18 06:30 Carbon Dioxide 25 mmol/L (21-33) 03/28/18 06:30 Anion Gap 11 (10-20) 03/28/18 06:30 BUN 15 mg/dL (7-21) 03/28/18 06:30 Creatinine 0.9 mg/dl (0.7-1.2) 03/28/18 06:30 Est GFR ( Amer) > 60 03/28/18 06:30 Est GFR (Non-Af Amer) > 60 03/28/18 06:30 Random Glucose 152 mg/dL (70-110) H 03/28/18 06:30 Hemoglobin A1c 6.1 % (4.2-6.5) 03/26/18 18:00 Calcium 8.7 mg/dL (8.4-10.5) 03/28/18 06:30 Iron 32 ug/dL (45-180) L 03/26/18 18:00 TIBC 271 ug/dL (265-497) 03/26/18 18:00 % Saturation 12 % (20-55) L 03/26/18 18:00 Ferritin 33.5 ng/mL 03/26/18 18:00 Total Bilirubin 0.5 mg/dL (0.2-1.3) 03/28/18 06:30 AST 32 U/L (14-36) 03/28/18 06:30 ALT 30 U/L (7-56) 03/28/18 06:30 Alkaline Phosphatase 64 U/L (38-126) 03/28/18 06:30 Lactate Dehydrogenase 506 U/L (333-699) 03/26/18 18:15 Total Creatine Kinase 378 U/L (35-230) H 03/26/18 18:15 CK-MB (CK-2) 1.2 ng/mL (0.0-3.6) 03/26/18 18:15 CK-MB (CK-2) % Cancelled 03/26/18 18:15 Troponin I < 0.01 ng/mL 03/27/18 07:10 Total Protein 7.5 g/dL (5.8-8.3) 03/28/18 06:30 Albumin 3.8 g/dL (3.0-4.8) 03/28/18 06:30 Globulin 3.7 gm/dL 03/28/18 06:30 Albumin/Globulin Ratio 1.0 (1.1-1.8) L 03/28/18 06:30 Triglycerides 79 mg/dL (35-160) 03/27/18 07:10 Cholesterol 230 mg/dL (130-200) H 03/27/18 07:10 LDL Cholesterol Direct 133 mg/dL (0-129) H 03/27/18 07:10 HDL Cholesterol 53 mg/dL (29-60) 03/27/18 07:10 Procalcitonin < 0.05 NG/ML (0.19-0.49) L 03/26/18 18:00 TSH 3rd Generation 2.75 mIU/mL (0.46-4.68) 03/26/18 18:12 Urine Color Light yellow (YELLOW) 03/26/18 21:20 Urine Appearance Clear (CLEAR) 03/26/18 21:20 Urine pH 7.0 (4.7-8.0) 03/26/18 21:20 Ur Specific [place] 1.015 (1.005-1.035) 03/26/18 21:20 Urine Protein Negative mg/dL (<30 mg/dL) 03/26/18 21:20 Urine Glucose (UA) Negative mg/dL (NEGATIVE) 03/26/18 21:20 Urine Ketones Negative mg/dL (NEGATIVE) 03/26/18 21:20 Urine Blood Trace-intact (NEGATIVE) H 03/26/18 21:20 Urine Nitrate Negative (NEGATIVE) 03/26/18 21:20 Urine Bilirubin Negative (NEGATIVE) 03/26/18 21:20 Urine Urobilinogen 0.2 E.U./dL (<1 E.U./dL) 03/26/18 21:20 Ur Leukocyte Esterase Negative Rigoberto/uL (NEGATIVE) 03/26/18 21:20 Urine RBC 0 - 2 /hpf (0-2) 03/26/18 21:20 Urine WBC Negative /hpf (0-6) 03/26/18 21:20 Ur Epithelial Cells 1 - 3 /hpf (0-5) 03/26/18 21:20 Urine Opiates Screen Negative (NEGATIVE) 03/27/18 02:18 Urine Methadone Screen Negative (NEGATIVE) 03/27/18 02:18 Ur Barbiturates Screen Negative (NEGATIVE) 03/27/18 02:18 Ur Phencyclidine Scrn Negative (NEGATIVE) 03/27/18 02:18 Ur Amphetamines Screen Negative (NEGATIVE) 03/27/18 02:18 U Benzodiazepines Scrn Negative (NEGATIVE) 03/27/18 02:18 U Oth Cocaine Metabols Negative (NEGATIVE) 03/27/18 02:18 U Cannabinoids Screen Negative (NEGATIVE) 03/27/18 02:18 Attending/Attestation - Attestation I have personally seen and examined this patient.: Yes I have fully participated in the care of the patient.: Yes I have reviewed all pertinent clinical information, including history, physical exam and plan: Yes Notes (Text): 03/28/18 11:57 53 year old female with past medical history of hypertension, GERD and asthma who presented with complaint of left sided neck swelling. She was recently prescribed po antibiotics and steroids for sialolithiasis. CT neck confirmed 7 mm calculus in the left submandibular gland near the origin of Whartin's duct. She was started on iv steroids and iv antibiotics and seen by ENT who agreed with medical management and recommended outpatient follow up. Patient is discharged home to follow up with pmd and ENT. Dai Gaspar MD Hospitalist.
[2018-03-28 12:41] VITALS: BP 126/72; RESP 18; TEMP 98.6
[2018-03-28 15:14] VITALS: PULSE 70
--- NOTE | 2018-03-29 08:56 | CON ---
DATE: 03/27/2018 Consultation from ER. HISTORY OF PRESENT ILLNESS: A 53-year-old female with chief complaint of left-sided neck pain and swelling. The patient had gone to [facility] over the last 2 weeks with complaints of approximately 3 weeks in duration of left-sided swelling and pain, which has progressed and is now seen at the [facility]. The patient states she is having difficulty swallowing with noted pain and swelling of the left submandibular triangle, onset over the last 3 weeks. Denies any previous history. This is a 53-year-old female with a significant asthma history, on multiple inhalers and hypertensive medicine, is seen now on the floor after admission over 12 hours with both IV antibiotics and steroid medication with noted interval improvement. The patient is seen after tolerating dinner without complication. The patient relates swelling after eating. A CAT scan was reviewed with the patient, left-sided stone noted along the submandibular triangle. This is palpable on presentation. No clinical adenopathy noted. A laryngoscopy was done at bedside revealed an open glottic chink, slightly limited in presentation secondary to the patient moving. Good airway was noted. No obstruction or masses noted on palpation. No cervical adenopathy. There was swelling in the left submandibular triangle consistent with the left submandibular gland. IMPRESSION: Sialolithiasis and sialoadenitis. PLAN: The patient will continue IV antibiotic and steroid over 24 hours. The patient may be discharged on antibiotic and oral steroid and will be followed in the office of Dr. Claude Sullivan. The patient discussion; 1. Palpation and massage of the submandibular triangle. 2. Milking of the floor of the mouth corresponding to left side. 3. , increasing oral liquids. 4. Sialogogue. 5. It was discussed that medical therapy for possible passing of stones. The patient will follow up as an outpatient on antibiotic and steroid regimen for continued medical therapy. It will be decided over the next few weeks if the stones are able to be grasped with either endoscope or left-sided submandibulectomy. It was discussed with the patient to treat conservatively at this point and to see progress. The patient may be discharged from the standpoint of an ENT and the patient to be followed as an outpatient in my office. Walter Sullivan DO [facility] # [id number]
== END 2018-03-28 15:42 | disposition home or self-care (01) ==
LOC: ED 16:16 → ERH 19:47 → 2RNO 23:08
PROVIDERS: ADMIT Hospitalist; ATTEND Internal Medicine
DX: K11.5 Sialolithiasis (principal); K11.20 Sialoadenitis, unspecified; I10 Essential (primary) hypertension; J45.909 Unspecified asthma, uncomplicated; K21.9 Gastro-esophageal reflux disease without esophagitis; D64.9 Anemia, unspecified; R13.10 Dysphagia, unspecified; Z87.891 Personal history of nicotine dependence
CPT/HCPCS: 36415; 70490; 71045; 80053; 80061; 80324; 80345; 80346; 80349; 80353; 80358; 80361; 81001; 82550; 82553; 82728; 83036; 83540; 83550; 83615; 83992; 84145; 84443; 84484; 85025; 85027; 85610; 85730; 86039; 86235; 87040; 87086; 87389; 92526; 92610; 93005; 94640; 96361; 96365; 96375; 99285; C9113; G0378; G8996; G8997; J1885; J2920; J2930; J7030

== ENCOUNTER 2018-06-18 14:24 | Observation (INO) | payer MEDICAID ==
[2018-06-18 14:26] VITALS: BMI 44.6
[2018-06-18 14:50] LABS: BASO # 0.02 K/mm3 (0.0-2.0); BASO % 0.2 % (0.0-3.0); EOS # 0.2 (0.0-0.7); EOS % 1.7 % (1.5-5.0); HEMOGLOBIN 12.4 g/dL (12.0-16.0); LYMPH # 2.7 (1.2-3.4); LYMPH % 28.3 % (22.0-35.0); MEAN CELL VOLUME 87.4 fl (80.0-105.0); MEAN CORPUSCULAR HEMOGLOBIN 28.8 pg (25.0-35.0); MEAN PLATELET VOLUME 9.1 fl (7.0-11.0); MONO # 0.5 (0.1-0.6); MONO % 5.4 % (1.0-6.0); RBC 4.3 10^6/uL (3.5-6.1); RED CELL DISTRIBUTION WIDTH 17.9 % (11.5-14.5); WHITE BLOOD COUNT 9.4 10^3/uL (4.5-11.0)
[2018-06-18] MEDS ORDERED: Famotidine 20mg/50ml 20 MG in Premixed IV 50 EA IVPB STA (15:00)
[2018-06-18] MEDS ORDERED: Alum-Mag Hydrox-Simethicone Susp (30 mL) PO ONE (15:00)
[2018-06-18 15:01] LABS: ALBUMIN 4.2 g/dL (3.0-4.8); ALT/SGPT 19 U/L (7-56); AST/SGOT 32 U/L (14-36); BLOOD UREA NITROGEN 12 mg/dL (7-21); CALCIUM 9.2 mg/dL (8.4-10.5); GFR NON-AFRICAN AMERICAN > 60
[2018-06-18 15:12] LABS: TROPONIN I < 0.01 ng/mL
--- NOTE | 2018-06-18 15:17 | ED PDOC ---
Arrival/HPI - General Chief Complaint: Chest Pain Time Seen by Provider: 06/18/18 14:25 Historian: Patient - History of Present Illness Narrative History of Present Illness (Text): 06/18/18 15:18 A 53 year old female, whose past medical history includes asthma, hypertension, and ulcer, presents to the emergency department complaining of chest pain described as chest tightness. Patient reports describes feeling sharp pain under left breast. Pain is associated with shortness of breath and radiates to left arm. Patient took medications, however had no relief from pain. Patient denies any other complaints at this time. Past Medical History - Provider Review Nursing Documentation Reviewed: Yes - Infectious Disease Hx of Infectious Diseases: None - Reproductive Menopause: Yes (1 yr ago) - Cardiac Hx Hypertension: Yes - Pulmonary Hx Asthma: Yes - Neurological Hx Neurological Disorder: No - HEENT Hx HEENT Disorder: No - Renal Hx Renal Disorder: No - Endocrine/Metabolic Hx Endocrine Disorders: No - Hematological/Oncological Hx Blood Disorders: No - Integumentary Hx Dermatological Disorder: No - Musculoskeletal/Rheumatological Hx Musculoskeletal Disorders: No - Gastrointestinal Hx Gastrointestinal Disorders: Yes Hx Gastroesophageal Reflux: Yes - Genitourinary/Gynecological Hx Genitourinary Disorders: No - Psychiatric Hx Psychophysiologic Disorder: No Hx Substance Use: No - Anesthesia Hx Anesthesia: No Hx Anesthesia Reactions: No Hx Malignant Hyperthermia: No Family/Social History - Physician Review Nursing Documentation Reviewed: Yes Family/Social History: No Known Family HX Smoking Status: Former Smoker Hx Alcohol Use: No Hx Substance Use: No Allergies/Home Meds Allergies/Adverse Reactions: Allergies No Known Allergies Allergy (Verified 03/26/18 16:28) Home Medications: Home Meds Medication Instructions Recorded Confirmed Cyclobenzaprine 5 mg PO DAILY 03/27/18 03/28/18 Pulmicort 1 spray INH DAILY PRN 03/27/18 03/27/18 Ventolin Hfa 2 spray INH DAILY 03/27/18 03/27/18 amLODIPine 5 mg PO DAILY 03/27/18 03/28/18 Review of Systems - Physician Review All systems were reviewed & negative as marked: Yes - Review of Systems Respiratory: SOB Cardiovascular: Chest Pain Physical Exam Vital Signs Reviewed: Yes Vital Signs Pulse Resp BP Pulse Ox 06/18/18 14:33 100 H 18 106/65 99 Blood Pressure: Normal Pulse: Regular Respiratory Rate: Normal Appearance: Positive for: Well-Appearing, Non-Toxic, Comfortable, Other (patient is morbidly obese) Pain Distress: None Mental Status: Positive for: Alert and Oriented X 3 - Systems Exam Head: Present: Atraumatic, Normocephalic Pupils: Present: PERRL Extroacular Muscles: Present: EOMI Conjunctiva: Present: Normal Mouth: Present: Moist Mucous Membranes Pharnyx: Present: Normal, Other (uvula midline) Neck: Present: Normal Range of Motion. No: JVD Respiratory/Chest: Present: Clear to Auscultation, Good Air Exchange. No: Respiratory Distress, Accessory Muscle Use, Wheezes, Rales, Rhonchi Cardiovascular: Present: Regular Rate and Rhythm, Normal S1, S2. No: Murmurs Abdomen: No: Tenderness, Distention, Peritoneal Signs Back: Present: Normal Inspection Upper Extremity: Present: Normal Inspection. No: Cyanosis, Edema Lower Extremity: Present: Normal Inspection. No: Edema Neurological: Present: GCS=15, CN II-XII Intact, Speech Normal Skin: Present: Warm, Dry, Normal Color. No: Rashes Psychiatric: Present: Alert, Oriented x 3, Normal Insight, Normal Concentration Medical Decision Making ED Course and Treatment: 06/18/18 15:19 Impression: 53 year old female with chest pain that radiates to left arm, starting from under left breast, associated with shortness of breath. Differential Diagnoses: Chest Pain rule out DC vs. Gastritis. Plan: -- Labs -- EKG -- Chest X-Ray -- Mirlax -- Pepcid Progress Notes: EKG shows NSR at 89 BPM with normal access and no ST- and T- wave changes. 06/18/18 16:22 Chest X-Ray IMPRESSION: No active disease. Dictator: Steven Altamirano Case discussed with Dr Farrar and she agrees with plan. Pt is for observation for her chest pain. - Lab Interpretations Lab Results: Troponin I < 0.01 ng/mL 06/18/18 14:40 Total Bilirubin 0.7 mg/dL (0.2-1.3) 06/18/18 14:40 AST 32 U/L (14-36) 06/18/18 14:40 ALT 19 U/L (7-56) 06/18/18 14:40 Alkaline Phosphatase 74 U/L (38-126) 06/18/18 14:40 Total Protein 8.4 g/dL (5.8-8.3) H 06/18/18 14:40 Albumin 4.2 g/dL (3.0-4.8) 06/18/18 14:40 Globulin 4.2 gm/dL 06/18/18 14:40 Albumin/Globulin Ratio 1.0 (1.1-1.8) L 06/18/18 14:40 - RAD Interpretation Radiology Orders: 06/18/18 14:30 CHEST PORTABLE [RAD] Stat - Medication Orders Current Medication Orders: Famotidine 20 mg/ (Miscellaneous) 50 mls @ 100 mls/hr IVPB STAT STA Stop: 06/18/18 15:29 Discontinued Medications Al Hydrox/Mg Hydrox/Simethicone (Maalox Plus 30 Ml) 30 ml PO ONCE ONE Stop: 06/18/18 15:01 - Scribe Statement The provider has reviewed the documentation as recorded by the Scribe Nicole Cano All medical record entries made by the Scribe were at my direction and personally dictated by me. I have reviewed the chart and agree that the record accurately reflects my personal performance of the history, physical exam, medical decision making, and the department course for this patient. I have also personally directed, reviewed, and agree with the discharge instructions and disposition. Disposition/Present on Arrival - Present on Arrival Any Indicators Present on Arrival: No History of DVT/PE: No History of Uncontrolled Diabetes: No Urinary Catheter: No History of Decub. Ulcer: No History Surgical Site Infection Following: None - Disposition Have Diagnosis and Disposition been Completed?: Yes Diagnosis: Chest pain Disposition: HOSPITALIZED Disposition Time: 16:48 Condition: GOOD Discharge Instructions (ExitCare): Chest Pain (ED) Referrals: Cesar Vuong MD [Primary Care Provider] - Follow up with primary Forms: [employer] (Montenegrin)
[2018-06-18] MEDS ORDERED: Albuterol 0.083% Inhal Sol (2.5 mg/3 mL) UD INH STA (15:49)
--- NOTE | 2018-06-18 15:51 | RAD ---
Date of service: 06/18/2018 HISTORY: Chest pain. COMPARISON: 03/26/2018 FINDINGS: LUNGS: . PLEURA: No significant pleural effusion identified, no pneumothorax apparent. CARDIOVASCULAR: No atherosclerotic calcification present No radiographic findings to suggest acute or significant cardiovascular disease. OSSEOUS STRUCTURES: No significant abnormalities. VISUALIZED UPPER ABDOMEN: Normal. OTHER FINDINGS: None. IMPRESSION: No active disease. No significant interval change compared to the prior examination(s).
[2018-06-18] MEDS ORDERED: Morphine 4 mg/ml ISec IVP STA (15:55)
[2018-06-18] MEDS ORDERED: Albuterol-Ipratrop 3 mg / 0.5 (3 ml) UD IH PRN (17:09)
[2018-06-18] MEDS ORDERED: PULMICORT INH PRN (17:17)
--- NOTE | 2018-06-18 17:43 | CP.PCM.HP ---
<EricksonBairon - Last Filed: 06/18/18 22:52> History of Present Illness - History of Present Illness History of Present Illness: Medicine H/P: Erickson, PGY - 2 Chief Complaint: Left sided CP 53 year old female with pertinent medical history of asthma, HTN, GERD, and recent stress test presents to [facility] ED on 06/18/18 with complaints of left sided chest pain, located below her left breast, radiating from her neck down to her arms, unresponsive to pepto-bismol, pepcid, and protonix at home. Patient states that she was also having shortness of breath (not on home O2) with dizziness but no nausea or vomiting. She states that early last week she lifted some heavy water bottles and that on Tuesday or Tuesday of last week she had [place], after which the symptoms started. She also had cheese fries from [employer] last night. Patient does follow with a incinerator attendant and had a recent stress test but no catheterizations in the past, no AMI in the past, and no recent ECHO. Review of Systems: 12 point ROS obtained and negative except as per HPI PMH: HTN, asthma, GERD, back pain PSH: None Meds: Amlodipine 5, Ventolin, Pulmicort, Flexeril 5 All: NKDA SH: Quit smoking 2 years ago (smoked 1/2 ppd for the last 35 years) . Social alcohol; Denies illicits FH: HTN, DM (maternal), Cardiac (paternal); Her mother is ; her sister has thyroid disease Present on Admission - Present on Admission Any Indicators Present on Admission: No Past Patient History - Infectious Disease Hx of Infectious Diseases: None - Past Social History Smoking Status: Former Smoker - CARDIAC Hx Hypertension: Yes - PULMONARY Hx Asthma: Yes - NEUROLOGICAL Hx Neurological Disorder: No - HEENT Hx HEENT Problems: No - RENAL Hx Chronic Kidney Disease: No - ENDOCRINE/METABOLIC Hx Endocrine Disorders: No - HEMATOLOGICAL/ONCOLOGICAL Hx Blood Disorders: No - INTEGUMENTARY Hx Dermatological Problems: No - MUSCULOSKELETAL/RHEUMATOLOGICAL Hx Musculoskeletal Disorders: No - GASTROINTESTINAL Hx Gastrointestinal Disorders: Yes Hx Gastroesophageal Reflux: Yes - GENITOURINARY/GYNECOLOGICAL Hx Genitourinary Disorders: No - PSYCHIATRIC Hx Psychophysiologic Disorder: No Hx Substance Use: No - SURGICAL HISTORY Hx Surgeries: No - ANESTHESIA Hx Anesthesia: No Hx Anesthesia Reactions: No Hx Malignant Hyperthermia: No Meds Allergies/Adverse Reactions: Allergies Allergy/AdvReac Type Severity Reaction Status Date / Time No Known Allergies Allergy Verified 03/26/18 16:28 Physical Exam - Constitutional Appears: Well - Head Exam Head Exam: ATRAUMATIC, NORMAL INSPECTION, NORMOCEPHALIC - Eye Exam Eye Exam: EOMI, Normal appearance, PERRL Pupil Exam: NORMAL ACCOMODATION, PERRL - ENT Exam ENT Exam: Mucous Membranes Moist, Normal Exam - Neck Exam Neck exam: Positive for: Normal Inspection - Respiratory Exam Respiratory Exam: Clear to Auscultation Bilateral, NORMAL BREATHING PATTERN - Cardiovascular Exam Cardiovascular Exam: REGULAR RHYTHM Additional comments: Reproducible midsternal chest pain - GI/Abdominal Exam GI & Abdominal Exam: Normal Bowel Sounds, Soft. absent: Tenderness - Extremities Exam Extremities exam: Positive for: normal inspection - Back Exam Back exam: NORMAL INSPECTION - Neurological Exam Neurological exam: Alert, CN II-XII Intact, Normal Gait, Oriented x3, Reflexes Normal - Psychiatric Exam Psychiatric exam: Normal Affect, Normal Mood - Skin Skin Exam: Dry, Intact, Normal Color, Warm - Additional Findings Additional findings: Reproducible shoulder pain Results - Vital Signs Recent Vital Signs: Last Vital Signs Temp Pulse 100 H 06/18/18 14:33 Resp 18 06/18/18 14:33 BP 106/65 06/18/18 14:33 Pulse Ox 99 06/18/18 14:33 - Labs Result Diagrams: 06/18/18 14:40 06/18/18 14:40 Labs: Laboratory Results - last 24 hr 06/18/18 06/18/18 14:40 14:40 WBC 9.4 RBC 4.30 Hgb 12.4 Hct 37.6 MCV 87.4 MCH 28.8 MCHC 33.0 RDW 17.9 H Plt Count 420 MPV 9.1 Neut % (Auto) 64.4 Lymph % (Auto) 28.3 [place] % (Auto) 5.4 Eos % (Auto) 1.7 Baso % (Auto) 0.2 Lymph # (Auto) 2.7 [place] # (Auto) 0.5 Eos # (Auto) 0.2 Baso # (Auto) 0.02 Absolute Neuts (auto) 6.02 Sodium 139 Potassium 4.0 Chloride 101 Carbon Dioxide 28 Anion Gap 15 BUN 12 Creatinine 0.9 Est GFR ( Amer) > 60 Est GFR (Non-Af Amer) > 60 Random Glucose 110 Calcium 9.2 Magnesium 2.0 Total Bilirubin 0.7 AST 32 ALT 19 Alkaline Phosphatase 74 Lactate Dehydrogenase 564 Total Creatine Kinase 89 Troponin I < 0.01 Total Protein 8.4 H Albumin 4.2 Globulin 4.2 Albumin/Globulin Ratio 1.0 L Assessment & Plan - Assessment and Plan (Free Text) Assessment: 53 F presenting with Deepti-Sukhdeep non anginal chest pain. EKG NSR; Trope neg X 1; Reproducible chest pain. Recent stress test. ASCVD not ascertained because we need lipid and TSH. Chest pain at this time most likely 2/2 GERD. Plan Chest pain r/o ACS - EKG in AM; serial tropes; A1C, TSH, Lipid panel - 40 IVP Protonix - Cardiology consult: Dr. Carvajal Abdominal pain - Abd U/s HTN: - Continue home Amlodipine; need to confirm dose with patient's pharmacy - f/u lipid panel, Hgb A1C Asthma: - Moderate, persistent. no active disease - Continue home pulmicort; hold home ventolin - Duonebs PRN, not ALEC - Maintain O2 sat >90% Back pain: - Hold home Flexeril DVT/GI ppx: - Protonix/Lovenox <Saige Farrar - Last Filed: 06/19/18 06:52> Results - Vital Signs Recent Vital Signs: Last Vital Signs Temp 98 F 06/19/18 06:00 Pulse 70 06/19/18 06:00 Resp 97 H 06/19/18 06:00 BP 112/69 06/19/18 06:00 Pulse Ox 98 06/19/18 00:01 - Labs Result Diagrams: 06/18/18 14:40 06/18/18 14:40 Labs: Laboratory Results - last 24 hr 06/18/18 06/18/18 06/18/18 14:40 14:40 18:00 WBC 9.4 RBC 4.30 Hgb 12.4 Hct 37.6 MCV 87.4 MCH 28.8 MCHC 33.0 RDW 17.9 H Plt Count 420 MPV 9.1 Neut % (Auto) 64.4 Lymph % (Auto) 28.3 [place] % (Auto) 5.4 Eos % (Auto) 1.7 Baso % (Auto) 0.2 Lymph # (Auto) 2.7 [place] # (Auto) 0.5 Eos # (Auto) 0.2 Baso # (Auto) 0.02 Absolute Neuts (auto) 6.02 Sodium 139 Potassium 4.0 Chloride 101 Carbon Dioxide 28 Anion Gap 15 BUN 12 Creatinine 0.9 Est GFR ( Amer) > 60 Est GFR (Non-Af Amer) > 60 Random Glucose 110 Calcium 9.2 Magnesium 2.0 Total Bilirubin 0.7 AST 32 ALT 19 Alkaline Phosphatase 74 Lactate Dehydrogenase 564 Total Creatine Kinase 89 Troponin I < 0.01 < 0.01 Total Protein 8.4 H Albumin 4.2 Globulin 4.2 Albumin/Globulin Ratio 1.0 L Urine Color Urine Appearance Urine pH Ur Specific [place] Urine Protein Urine Glucose (UA) Urine Ketones Urine Blood Urine Nitrate Urine Bilirubin Urine Urobilinogen Ur Leukocyte Esterase Urine RBC Urine WBC Ur Epithelial Cells Urine Bacteria 06/18/18 06/18/18 06/19/18 19:00 23:20 03:00 WBC RBC Hgb Hct MCV MCH MCHC RDW Plt Count MPV Neut % (Auto) Lymph % (Auto) [place] % (Auto) Eos % (Auto) Baso % (Auto) Lymph # (Auto) [place] # (Auto) Eos # (Auto) Baso # (Auto) Absolute Neuts (auto) Sodium Potassium Chloride Carbon Dioxide Anion Gap BUN Creatinine Est GFR ( Amer) Est GFR (Non-Af Amer) Random Glucose Calcium Magnesium Total Bilirubin AST ALT Alkaline Phosphatase Lactate Dehydrogenase Total Creatine Kinase Troponin I < 0.01 < 0.01 Total Protein Albumin Globulin Albumin/Globulin Ratio Urine Color Yellow Urine Appearance Sl cloudy Urine pH 6.0 Ur Specific [place] 1.025 Urine Protein 30 H Urine Glucose (UA) Negative Urine Ketones Negative Urine Blood Moderate H Urine Nitrate Negative Urine Bilirubin Negative Urine Urobilinogen 0.2 Ur Leukocyte Esterase Small H Urine RBC 2 - 5 H Urine WBC 2 - 5 Ur Epithelial Cells 10 - 12 H Urine Bacteria Few Attending/Attestation - Attestation I have personally seen and examined this patient.: Yes I have fully participated in the care of the patient.: Yes I have reviewed all pertinent clinical information: Yes Notes (Text): Patient seen and examined by me with resident at approximately 4:45PM on 06/18/18 in the emergency room. Case including HPI, physical exam, and assessment and plan discussed with resident. Agree with above with following additions/corrections. Patient is a 53-year-old female with past medical history significant for hypertension, GERD, asthma, spinal stenosis that presented to the emergency room with epigastric pain and pain underneath the left breast. Patient states this started approximately 3-4 days ago after patient food from [place]. Patient states that the epigastric pain feels like "chest tightness. "The pain is radiating across the entire chest, into the arms, neck, and back. Patient states that she thought it was gas and tried [place] and Pepto-Bismol without any relief. Patient states she also was taking Pepcid twice a day. Patient states that she was prescribed omeprazole and Pepcid to take however, she does not take the omeprazole. Patient states that the pain in them epigastric area also feels like pressure. She states that the pain under her left breast is a sharp pain. Patient has also had some associated shortness of breath with walking. She states that she also has a history of feeling chest palpitations and was seen by a incinerator attendant recently. She states that she had a stress test on 06/07/2018 but does not know the results. Patient denies any nausea or vomiting. She is tolerating diet. No difficulty swallowing. No fevers or chills. No diaphoresis. No dysuria. She has chronic back pain. No diarrhea or constipation. 12 point review of systems reviewed by me. Please see above HPI, all other systems negative. Family history. Mother and had a history of asthma, type 2 diabetes. Father and had a history of COPD, heart disease, and gout. Physical exam: General: Awake and alert sitting up in bed in no acute distress. HEENT: Normocephalic, atraumatic. Extraocular muscles intact, pupils equal and reactive, no scleral icterus. Oropharynx is pink and moist. No pharyngeal erythema or exudate appreciated. Neck is supple. Hearing grossly intact. Ears and nose externally unremarkable. Cardiovascular: Normal rhythm. Normal S1 and S2. No murmurs, rubs, or gallops appreciated Pulmonary: Normal respiratory effort. No rhonchi, rales, or wheezing appreciated. Gastrointestinal: Soft, nondistended. Positive epigastric tenderness. Positive bowel sounds all 4 quadrants. No guarding. Obese abdomen. Musculoskeletal: Moves all extremities. No calf tenderness. No edema. Central nervous system: AAOx3. CN 2-12 grossly inact. 5/5 muscle strength all extremities. Dermatologic: Skin warm and dry. Assessment and plan: Patient is a 53-year-old female with past medical history significant for hypertension, GERD, asthma, spinal stenosis that presented to the emergency room with epigastric pain and pain underneath the left breast. 1. Chest pain/tightness. May be secondary to acid reflux. Rule out ACS. Cardiology consulted, follow-up recommendations. First troponin within normal limits. Follow up serial troponins. Follow-up TSH and hemoglobin A1c. Lipid panel. Place on aspirin. Monitor on telemetry. 2. Epigastric pain. GERD. Follow-up abdominal ultrasound. Placed on Protonix. 3. Essential hypertension. Continue home Norvasc. 4. Asthma. Not in acute exacerbation. Placed on nebulizer treatments as needed. 5. Morbid obesity. BMI 44.6. Diet and exercise discussed. 6. GI/DVT prophylaxis. Protonix/Lovenox. 7. Patient is a full code. Case discussed in detail with the patient regarding current diagnosis and treatment plan. All questions answered.
[2018-06-18] MEDS: Enoxaparin 40 mg Syringe SC SCH (18:00)
[2018-06-18 19:09] LABS: URINE BILIRUBIN NEGATIVE (NEGATIVE); URINE BLOOD MODERATE (NEGATIVE); URINE GLUCOSE (UA) NEGATIVE (NEGATIVE); URINE LEUKOCYTE ESTERASE SMALL Leu/uL (NEGATIVE); URINE PROTEIN 30 mg/dL (<30 mg/dL); URINE UROBILINOGEN 0.2 E.U./dL (<1 E.U./dL)
[2018-06-18 19:14] VITALS: O2SAT 98
[2018-06-18 19:22] LABS: URINE APPEARANCE SL CLOUDY (CLEAR); URINE COLOR YELLOW (YELLOW)
[2018-06-18 19:29] LABS: URINE BACTERIA FEW /hpf
--- NOTE | 2018-06-19 03:00 | CP.PCM.PCO ---
<Sandip Kc - Last Filed: 06/19/18 03:02> Addendum Addendum: 06/19/18 02:58 Requested to examine patient Patient complaining of left sided chest discomfort, radiating to her abdomen Vital signs stable, RRR +S1, S2, positive anterior chest wall tenderness Troponin and EKG Continue to monitor No escalation of care indicated at this time Sandip Kc PGY-1 <Carli Mcfarlane - Last Filed: 06/19/18 06:39> Attending/Attestation - Attestation I have personally seen and examined this patient.: No I have fully participated in the care of the patient.: No I have reviewed all pertinent clinical information: No
[2018-06-19 06:42] VITALS: TEMP 98
[2018-06-19 06:58] LABS: BASO # 0.02 K/mm3 (0.0-2.0); BASO % 0.2 % (0.0-3.0); EOS # 0.3 (0.0-0.7); EOS % 2.9 % (1.5-5.0); HEMOGLOBIN 11.1 g/dL (12.0-16.0); LYMPH # 3.2 (1.2-3.4); LYMPH % 35.7 % (22.0-35.0); MEAN CELL VOLUME 88.4 fl (80.0-105.0); MEAN CORPUSCULAR HEMOGLOBIN 28.1 pg (25.0-35.0); MEAN CORPUSCULAR HGB CONC 31.8 g/dl (31.0-37.0); MEAN PLATELET VOLUME 9.5 fl (7.0-11.0); MONO # 0.7 (0.1-0.6); MONO % 7.8 % (1.0-6.0); RBC 3.95 10^6/uL (3.5-6.1); WHITE BLOOD COUNT 8.9 10^3/uL (4.5-11.0)
[2018-06-19 07:35] LABS: TROPONIN I < 0.01 ng/mL
[2018-06-19 07:45] LABS: ALBUMIN 3.7 g/dL (3.0-4.8); ALT/SGPT 12 U/L (7-56); AST/SGOT 34 U/L (14-36); BLOOD UREA NITROGEN 16 mg/dL (7-21); GFR NON-AFRICAN AMERICAN > 60; HDL CHOLESTEROL 36 mg/dL (29-60)
[2018-06-19 07:50] LABS: LDL CHOLESTEROL 113 mg/dL (0-129)
[2018-06-19] MEDS: Enoxaparin 40 mg Syringe SC SCH (09:28)
--- NOTE | 2018-06-19 09:59 | CARD ---
APPROVED REPORT Date of service: 06/18/2018 EKG Measurement Heart [id number] <Conclusion> Normal sinus rhythm Nonspecific ST and T wave abnormality Prolonged QT Abnormal ECG
--- NOTE | 2018-06-19 10:31 | CARD ---
APPROVED REPORT Date of service: 06/19/2018 EKG Measurement Heart [id number] <Conclusion> Normal sinus rhythm Nonspecific T wave abnormality Abnormal ECG
--- NOTE | 2018-06-19 12:01 | US ---
Date of service: 06/19/2018 HISTORY: abdominal pain COMPARISON: None. TECHNIQUE: Sonographic evaluation of the abdomen. FINDINGS: LIVER: Liver is enlarged measuring nearly 25 cm in CC dimension.. Liver demonstrates smooth contour though increased echotexture likely due to fatty infiltration however other infiltrative hepatocellular disease process not excluded. Liver parenchyma. No mass. No intrahepatic bile duct dilatation. GALLBLADDER: Unremarkable. No gallstones. No sonographic Baker sign reported COMMON BILE DUCT: Measures 5.8 mm. No stones. No dilatation. PANCREAS: Unremarkable as visualized. No mass. No ductal dilatation. RIGHT KIDNEY: Measures 8.7 x 4.1 x 4.9cm. Normal echogenicity. No calculus, mass, or hydronephrosis. LEFT KIDNEY: Measures 10.4 x 5.1 x 6.4cm. Normal echogenicity. No calculus, mass, or hydronephrosis. SPLEEN: Normal in size and contour. No mass. AORTA: No aneurysmal dilatation. IVC: Unremarkable. OTHER FINDINGS: None. IMPRESSION: Hepatomegaly with presumed fatty infiltration however other infiltrative hepatocellular disease process not excluded. No evidence of cholelithiasis.
[2018-06-19 12:35] VITALS: BP 133/75; RESP 18
--- NOTE | 2018-06-19 12:57 | CP.PCM.DIS ---
<Fortunato Vincent - Last Filed: 06/19/18 14:22> Provider - Provider Date of Admission: 06/18/18 16:33 Attending physician: Saige Farrar DO Primary care physician: Cesar Vuong MD Consults: 06/18/18 17:11 Cardiology Consult Routine Comment: Consulting Provider: Derek Carvajal Consulting Physician: Derek Carvajal Reason for Consult: ACS r/o 06/18/18 21:04 Inpatient [facility] Core Measures Referral Routine Comment: Physician Instructions: Reason For Exam: PROTOCOL Transition In Care/Readmission Reduction Routine Comment: Physician Instructions: Reason For Exam: PROTOCOL Time Spent in preparation of Discharge (in minutes): 40 Hospital Course - Lab Results Lab Results: Most Recent Lab Values WBC 8.9 10^3/uL (4.5-11.0) 06/19/18 06:10 RBC 3.95 10^6/uL (3.5-6.1) 06/19/18 06:10 Hgb 11.1 g/dL (12.0-16.0) L 06/19/18 06:10 Hct 34.9 % (36.0-48.0) L 06/19/18 06:10 MCV 88.4 fl (80.0-105.0) 06/19/18 06:10 MCH 28.1 pg (25.0-35.0) 06/19/18 06:10 MCHC 31.8 g/dl (31.0-37.0) 06/19/18 06:10 RDW 18.0 % (11.5-14.5) H 06/19/18 06:10 Plt Count 400 10^3/uL (120.0-450.0) 06/19/18 06:10 MPV 9.5 fl (7.0-11.0) 06/19/18 06:10 Neut % (Auto) 53.4 % (50.0-68.0) 06/19/18 06:10 Lymph % (Auto) 35.7 % (22.0-35.0) H 06/19/18 06:10 [place] % (Auto) 7.8 % (1.0-6.0) H 06/19/18 06:10 Eos % (Auto) 2.9 % (1.5-5.0) 06/19/18 06:10 Baso % (Auto) 0.2 % (0.0-3.0) 06/19/18 06:10 Lymph # (Auto) 3.2 (1.2-3.4) 06/19/18 06:10 [place] # (Auto) 0.7 (0.1-0.6) H 06/19/18 06:10 Eos # (Auto) 0.3 (0.0-0.7) 06/19/18 06:10 Baso # (Auto) 0.02 K/mm3 (0.0-2.0) 06/19/18 06:10 Absolute Neuts (auto) 4.73 (1.4-6.5) 06/19/18 06:10 Sodium 139 mmol/L (132-148) 06/19/18 06:10 Potassium 3.7 mmol/L (3.6-5.0) 06/19/18 06:10 Chloride 102 mmol/L (98-107) 06/19/18 06:10 Carbon Dioxide 29 mmol/L (21-33) 06/19/18 06:10 Anion Gap 12 (10-20) 06/19/18 06:10 BUN 16 mg/dL (7-21) 06/19/18 06:10 Creatinine 0.9 mg/dl (0.7-1.2) 06/19/18 06:10 Est GFR ( Amer) > 60 06/19/18 06:10 Est GFR (Non-Af Amer) > 60 06/19/18 06:10 Random Glucose 97 mg/dL (70-110) 06/19/18 06:10 Hemoglobin A1c 6.1 % (4.2-6.5) 06/18/18 18:00 Calcium 9.0 mg/dL (8.4-10.5) 06/19/18 06:10 Phosphorus 3.7 mg/dL (2.5-4.5) 06/19/18 06:10 Magnesium 2.1 mg/dL (1.7-2.2) 06/19/18 06:10 Total Bilirubin 0.5 mg/dL (0.2-1.3) 06/19/18 06:10 AST 34 U/L (14-36) 06/19/18 06:10 ALT 12 U/L (7-56) 06/19/18 06:10 Alkaline Phosphatase 56 U/L (38-126) 06/19/18 06:10 Lactate Dehydrogenase 564 U/L (333-699) 06/18/18 14:40 Total Creatine Kinase 89 U/L (35-230) 06/18/18 14:40 Troponin I < 0.01 ng/mL 06/19/18 06:10 Total Protein 7.5 g/dL (5.8-8.3) 06/19/18 06:10 Albumin 3.7 g/dL (3.0-4.8) 06/19/18 06:10 Globulin 3.8 gm/dL 06/19/18 06:10 Albumin/Globulin Ratio 1.0 (1.1-1.8) L 06/19/18 06:10 Triglycerides 153 mg/dL (35-160) 06/19/18 06:10 Cholesterol 213 mg/dL (130-200) H 06/19/18 06:10 LDL Cholesterol Direct 113 mg/dL (0-129) 06/19/18 06:10 HDL Cholesterol 36 mg/dL (29-60) 06/19/18 06:10 TSH 3rd Generation 3.04 mIU/mL (0.46-4.68) 06/19/18 06:10 Urine Color Yellow (YELLOW) 06/18/18 19:00 Urine Appearance Sl cloudy (CLEAR) 06/18/18 19:00 Urine pH 6.0 (4.7-8.0) 06/18/18 19:00 Ur Specific [place] 1.025 (1.005-1.035) 06/18/18 19:00 Urine Protein 30 mg/dL (<30 mg/dL) H 06/18/18 19:00 Urine Glucose (UA) Negative mg/dL (NEGATIVE) 06/18/18 19:00 Urine Ketones Negative mg/dL (NEGATIVE) 06/18/18 19:00 Urine Blood Moderate (NEGATIVE) H 06/18/18 19:00 Urine Nitrate Negative (NEGATIVE) 06/18/18 19:00 Urine Bilirubin Negative (NEGATIVE) 06/18/18 19:00 Urine Urobilinogen 0.2 E.U./dL (<1 E.U./dL) 06/18/18 19:00 Ur Leukocyte Esterase Small Rigoberto/uL (NEGATIVE) H 06/18/18 19:00 Urine RBC 2 - 5 /hpf (0-2) H 06/18/18 19:00 Urine WBC 2 - 5 /hpf (0-6) 06/18/18 19:00 Ur Epithelial Cells 10 - 12 /hpf (0-5) H 06/18/18 19:00 Urine Bacteria Few /hpf (NONE) 06/18/18 19:00 - Hospital Course Hospital Course: Fortunato Vincent, PGY-1 Discharge Summary for Hospitalist Service 53-year-old female with past medical history significant for hypertension, GERD, asthma that presented with epigastric pain and pain/tightness underneath the left breast. Acute coronary syndrome was considered. EKGs were ordered and troponins were trended. Cardiology - Dr. Carvajal - was consulted for chest pain/tightness. Patient reports a recent stress test within the last month but did not have results. A call was made to [facility]'s [place] doctor requesting results of stress test. current complaints may be secondary to acid reflux, but must first rule out ACS. Troponin x5 were all negative. EKG showed NSR @ 62 bpm with prolonged QT of 469 withoutST elevations or depressions. Follow-up TSH was 3.06 and hemoglobin A1c was 6.0. Lipid panel was ordered which revealed cholesterol of 213, TG of 153 LDL of 113 and HDL of 36. Patient mentioned that her PMD had placed her on aspirin, which was continued in house. Patient was monitored on telemetry. For patient epigastric pain, likely GERD, an abdominal ultrasound was ordered and revealed fatty liver. Patient was placed on Protonix. For essential hypertension, home Norvasc was continued. For history of asthma without acute exacerbation, patient was placed on nebulizer treatments as needed. For patient morbid obesity with a BMI 44.6, diet and exercise were discussed at length. Patient was receptive to these changes. ASCVD score was elevated to 9% so atorvastatin 20 mg daily was started. Patient was placed on Protonix/Lovenox for GI/DVT prophylaxis. Workup was discussed in detail with patient and all questions and need for followups were answered in detail. Patient demonstrated understanding. Patient had initial urinalysis performed which was contaminated. Repeat UA showed trace blood without evidence of infection. Patient was provided scripts for aspirin, atorvastatin, ventolin inhaler, and protonix. For full details of hospitalization, please refer to EMR. Patient seen, case reviewed and plan approved by Dr. Marcia Farrar. Fortunaot Vincent, PGY-1 Discharge Exam - Additional Findings Additional findings: - Constitutional Appears: Well - Head Exam Head Exam: ATRAUMATIC, NORMAL INSPECTION, NORMOCEPHALIC - Eye Exam Eye Exam: EOMI, Normal appearance, PERRL Pupil Exam: NORMAL ACCOMODATION, PERRL - ENT Exam ENT Exam: Mucous Membranes Moist, Normal Exam - Neck Exam Neck exam: Positive for: Normal Inspection - Respiratory Exam Respiratory Exam: Clear to Auscultation Bilateral, NORMAL BREATHING PATTERN - Cardiovascular Exam Cardiovascular Exam: REGULAR RHYTHM, +S1 +S2, no tachycardia Additional comments: Reproducible midsternal and L sided chest pain - GI/Abdominal Exam GI & Abdominal Exam: Normal Bowel Sounds, Soft. absent: Tenderness - Extremities Exam Extremities exam: Positive for: normal inspection - Back Exam Back exam: NORMAL INSPECTION - Neurological Exam Neurological exam: Alert, CN II-XII Intact, Normal Gait, Oriented x3, Reflexes Normal - Psychiatric Exam Psychiatric exam: Normal Affect, Normal Mood - Skin Skin Exam: Dry, Intact, Normal Color, Warm - Additional Findings Additional findings: Reproducible shoulder pain Discharge Plan - Discharge Medications Prescriptions: Aspirin [Aspirin Chewable] 81 mg PO DAILY #14 chew Atorvastatin [Lipitor] 20 mg PO DAILY #14 tab Pantoprazole [Protonix EC Tab] 40 mg PO 0600 #14 ect Ventolin Hfa 2 spray INH DAILY #1 - Follow Up Plan Condition: GOOD Disposition: HOME/ ROUTINE Instructions: Chest Pain That Is Not Caused by the Heart (DC), Acid Reflux (Gastroesophageal Reflux Disease), Adult (DC), Dysphagia (DC) Additional Instructions: You have been provided a prescription for Protonix, Aspirin, Atorvastatin and Ventolin inhaler. Please take it along with your home medications as prescribed. Please follow up with your primary doctor Dr. Vuong within 3-5 days. He can provide you a referral to a deputy assessor who may be able to help with your symptoms. Please follow up with your private tube puller within one week regarding your stress test and any further necessary workup. Attempts were made to collect the results of your stress test, so please be sure to contact your private tube puller. If you are unable to, please follow up with Dr. Carvajal. His office # is [phone]. Should symptoms return or worsen, please visit nearest emergency department. Referrals: Cesar Vuong MD [Primary Care Provider] - Derek Carvajal MD [Staff Provider] - <Saige Farrar - Last Filed: 06/19/18 14:57> Provider - Provider Date of Admission: 06/18/18 16:33 Attending physician: Saige Farrar DO Primary care physician: Cesar Vuong MD Consults: 06/18/18 17:11 Cardiology Consult Routine Comment: Consulting Provider: Derek Carvajal Consulting Physician: Derek Carvajal Reason for Consult: ACS r/o 06/18/18 21:04 Inpatient [facility] Core Measures Referral Routine Comment: Physician Instructions: Reason For Exam: PROTOCOL Transition In Care/Readmission Reduction Routine Comment: Physician Instructions: Reason For Exam: PROTOCOL Hospital Course - Lab Results Lab Results: Most Recent Lab Values WBC 8.9 10^3/uL (4.5-11.0) 06/19/18 06:10 RBC 3.95 10^6/uL (3.5-6.1) 06/19/18 06:10 Hgb 11.1 g/dL (12.0-16.0) L 06/19/18 06:10 Hct 34.9 % (36.0-48.0) L 06/19/18 06:10 MCV 88.4 fl (80.0-105.0) 06/19/18 06:10 MCH 28.1 pg (25.0-35.0) 06/19/18 06:10 MCHC 31.8 g/dl (31.0-37.0) 06/19/18 06:10 RDW 18.0 % (11.5-14.5) H 06/19/18 06:10 Plt Count 400 10^3/uL (120.0-450.0) 06/19/18 06:10 MPV 9.5 fl (7.0-11.0) 06/19/18 06:10 Neut % (Auto) 53.4 % (50.0-68.0) 06/19/18 06:10 Lymph % (Auto) 35.7 % (22.0-35.0) H 06/19/18 06:10 [place] % (Auto) 7.8 % (1.0-6.0) H 06/19/18 06:10 Eos % (Auto) 2.9 % (1.5-5.0) 06/19/18 06:10 Baso % (Auto) 0.2 % (0.0-3.0) 06/19/18 06:10 Lymph # (Auto) 3.2 (1.2-3.4) 06/19/18 06:10 [place] # (Auto) 0.7 (0.1-0.6) H 06/19/18 06:10 Eos # (Auto) 0.3 (0.0-0.7) 06/19/18 06:10 Baso # (Auto) 0.02 K/mm3 (0.0-2.0) 06/19/18 06:10 Absolute Neuts (auto) 4.73 (1.4-6.5) 06/19/18 06:10 Sodium 139 mmol/L (132-148) 06/19/18 06:10 Potassium 3.7 mmol/L (3.6-5.0) 06/19/18 06:10 Chloride 102 mmol/L (98-107) 06/19/18 06:10 Carbon Dioxide 29 mmol/L (21-33) 06/19/18 06:10 Anion Gap 12 (10-20) 06/19/18 06:10 BUN 16 mg/dL (7-21) 06/19/18 06:10 Creatinine 0.9 mg/dl (0.7-1.2) 06/19/18 06:10 Est GFR ( Amer) > 60 06/19/18 06:10 Est GFR (Non-Af Amer) > 60 06/19/18 06:10 Random Glucose 97 mg/dL (70-110) 06/19/18 06:10 Hemoglobin A1c 6.1 % (4.2-6.5) 06/18/18 18:00 Calcium 9.0 mg/dL (8.4-10.5) 06/19/18 06:10 Phosphorus 3.7 mg/dL (2.5-4.5) 06/19/18 06:10 Magnesium 2.1 mg/dL (1.7-2.2) 06/19/18 06:10 Total Bilirubin 0.5 mg/dL (0.2-1.3) 06/19/18 06:10 AST 34 U/L (14-36) 06/19/18 06:10 ALT 12 U/L (7-56) 06/19/18 06:10 Alkaline Phosphatase 56 U/L (38-126) 06/19/18 06:10 Lactate Dehydrogenase 564 U/L (333-699) 06/18/18 14:40 Total Creatine Kinase 89 U/L (35-230) 06/18/18 14:40 Troponin I < 0.01 ng/mL 06/19/18 06:10 Total Protein 7.5 g/dL (5.8-8.3) 06/19/18 06:10 Albumin 3.7 g/dL (3.0-4.8) 06/19/18 06:10 Globulin 3.8 gm/dL 06/19/18 06:10 Albumin/Globulin Ratio 1.0 (1.1-1.8) L 06/19/18 06:10 Triglycerides 153 mg/dL (35-160) 06/19/18 06:10 Cholesterol 213 mg/dL (130-200) H 06/19/18 06:10 LDL Cholesterol Direct 113 mg/dL (0-129) 06/19/18 06:10 HDL Cholesterol 36 mg/dL (29-60) 06/19/18 06:10 TSH 3rd Generation 3.04 mIU/mL (0.46-4.68) 06/19/18 06:10 Urine Color Yellow (YELLOW) 06/19/18 13:30 Urine Appearance Sl cloudy (CLEAR) 06/19/18 13:30 Urine pH 6.0 (4.7-8.0) 06/19/18 13:30 Ur Specific [place] 1.020 (1.005-1.035) 06/19/18 13:30 Urine Protein Negative mg/dL (<30 mg/dL) 06/19/18 13:30 Urine Glucose (UA) Negative mg/dL (NEGATIVE) 06/19/18 13:30 Urine Ketones Negative mg/dL (NEGATIVE) 06/19/18 13:30 Urine Blood Trace-intact (NEGATIVE) H 06/19/18 13:30 Urine Nitrate Negative (NEGATIVE) 06/19/18 13:30 Urine Bilirubin Negative (NEGATIVE) 06/19/18 13:30 Urine Urobilinogen 0.2 E.U./dL (<1 E.U./dL) 06/19/18 13:30 Ur Leukocyte Esterase Small Rigoberto/uL (NEGATIVE) H 06/19/18 13:30 Urine RBC 0 - 2 /hpf (0-2) 06/19/18 13:30 Urine WBC 0 - 2 /hpf (0-6) 06/19/18 13:30 Ur Epithelial Cells 4 - 5 /hpf (0-5) 06/19/18 13:30 Urine Bacteria Few /hpf (NONE) 06/18/18 19:00 Attending/Attestation - Attestation I have personally seen and examined this patient.: Yes I have fully participated in the care of the patient.: Yes I have reviewed all pertinent clinical information, including history, physical exam and plan: Yes Notes (Text): Patient seen and examined by me with resident at approximately 9:25 AM and prior to discharge on 06/19/18. Case including discharge plan discussed with resident. Agree with above with following additions/corrections. Patient is a 53-year-old female with past medical history significant for hypertension, GERD, asthma, spinal stenosis that presented to the emergency room with epigastric pain and pain underneath the left breast. Please see H&P for full details. Patient was admitted with chest pain/tightness, epigastric pain, GERD, HTN, Asthma, and morbid obesity. ACS was ruled out. Troponins were within normal limits. TSH was 3.04. Hgb A1C was 6.1. Total cholesterol was 213, LDL 113, and HDL 36. Patient stated that she is on baby ASA at home and asked for a prescription refill. It was attempted to get patient's stress test results from her physician. Patient was seen by tube puller Dr. Singh who recommended outpatient follow up. Chest pain was reproducible and likely secondary to acid reflux. Patient was counseled at length on GERD symptoms and lifestyle modifications for improvement in symptoms. Abdominal ultrasound per radiologist showed hepatomegaly with presumed fatty infiltration however other infiltrative process or disease processes excluded, no evidence of cholelithiasis. She was counseled at length about diet and exercise. She was advised that she will need to follow-up with deputy assessor for follow-up on acid reflux and hepatomegaly. Patient was treated with Protonix. Patient was continued on home Norvasc for hypertension. Patient was placed on nebulizer treatments as needed for asthma. Patient's BMI was 44.6. Diet and exercise was discussed at length patient. Patient was feeling better. Patient was cleared for discharge by cardiology. She was discharged home. On day of discharge, patient stated she was feeling better. Still with some epigastric pain and pain under her left breast but improved (points to left upper quadrant). Patient denies any nausea or vomiting. She is tolerating diet. No difficulty swallowing. No chest pain or shortness of breath. No fevers or chills. No diaphoresis. No dysuria. Patient has chronic back pain. No diarrhea or constipation. Physical exam: General: Awake and alert sitting up in bed in no acute distress. HEENT: Normocephalic, atraumatic. Extraocular muscles intact, pupils equal and reactive, no scleral icterus. Oropharynx is pink and moist. No pharyngeal erythema or exudate appreciated. Neck is supple. Hearing grossly intact. Ears and nose externally unremarkable. Cardiovascular: Normal rhythm. Normal S1 and S2. No murmurs, rubs, or gallops appreciated Pulmonary: Normal respiratory effort. No rhonchi, rales, or wheezing appreciated. Gastrointestinal: Soft, nondistended. Positive epigastric tenderness. Mild left upper quadrant tenderness. Positive bowel sounds all 4 quadrants. No guarding. Obese abdomen. Musculoskeletal: Moves all extremities. No calf tenderness. No edema. Central nervous system: AAOx3. CN 2-12 grossly inact. 5/5 muscle strength all extremities. Dermatologic: Skin warm and dry. Please see chart for full details. Follow up instructions: Patient to follow-up with primary care doctor within 3-5 days. Patient to get referral for deputy assessor from primary care doctor. Patient to follow-up with her tube puller for stress test results and further recommendations. If patient unable to see her tube puller, information of the tube puller seen at this admission given to patient. All instructions explained to the patient in detail. Patient both understands and agrees to all instructions. Written instructions also given. Time spent in discharging the patient including chart review, medication reconciliation, discussion with the patient, medical office scheduler, consultants, and nursing staff was approximately 40 minutes.
[2018-06-19 13:41] LABS: URINE BILIRUBIN NEGATIVE (NEGATIVE); URINE BLOOD TRACE-INTACT (NEGATIVE); URINE GLUCOSE (UA) NEGATIVE (NEGATIVE); URINE LEUKOCYTE ESTERASE SMALL Leu/uL (NEGATIVE); URINE PROTEIN NEGATIVE mg/dL (<30 mg/dL); URINE UROBILINOGEN 0.2 E.U./dL (<1 E.U./dL)
[2018-06-19 13:43] LABS: URINE APPEARANCE SL CLOUDY (CLEAR); URINE COLOR YELLOW (YELLOW)
[2018-06-19 13:55] LABS: URINE RBC 0 - 2 /hpf (0-2); URINE WBC 0 - 2 /hpf (0-6)
[2018-06-19 15:58] VITALS: PULSE 72
[2018-06-20] MEDS ORDERED: Pantoprazole 40 mg EC Tab PO SCH (06:00)
== END 2018-06-19 17:52 | disposition home or self-care (01) ==
LOC: ED 14:24 → ERH 16:33 → 2RNO 18:47
PROVIDERS: ADMIT Hospitalist; ATTEND Hospitalist
DX: K21.9 Gastro-esophageal reflux disease without esophagitis (principal); R07.89 Other chest pain; I10 Essential (primary) hypertension; J45.909 Unspecified asthma, uncomplicated; K76.0 Fatty (change of) liver, not elsewhere classified; R16.0 Hepatomegaly, not elsewhere classified; M54.9 Dorsalgia, unspecified; E66.01 Morbid (severe) obesity due to excess calories; Z68.41 Body mass index [BMI] 40.0-44.9, adult; Z79.82 Long term (current) use of aspirin; Z87.891 Personal history of nicotine dependence
CPT/HCPCS: 36415; 71045; 76700; 80053; 80061; 81001; 82550; 83036; 83615; 83735; 84100; 84443; 84484; 85025; 93005; 94640; 96372; 96374; 96376; 99282; C9113; G0378; J1650; J2270